=== PATIENT | female | born 1940 | race Caucasian/White ===

== ENCOUNTER 2017-09-24 11:08 | Observation (INO) | payer MEDICARE, MEDICAID, SELFPAY ==
[2017-09-24] VITALS (8 sets, daily range): BP systolic 88–122; BP diastolic 38–64; PULSE 66–108; RESP 18–20; TEMP 36.7–36.9; O2SAT 91–97; BMI 21.0
--- NOTE | 2017-09-24 11:40 | XR_ITS ---
XR chest 2V HISTORY: ITS.REASON: cough, shortness of breath ORDERING PHYSICIAN: Aleksey Collins MD PATIENT AGE: 76 years COMPARISON: [id number] FINDINGS: The cardiomediastinal silhouette and pulmonary vascularity are within normal limits. There are postsurgical changes on the right with surgical clips in the right upper lobe and right suprahilar region. Pleural parenchymal changes are present in the right lung base. There is some superimposed increased density in the right lower lobe suspicious for superimposed infiltrate. Chronic changes are present in the left lower lobe. No acute bony anomalies. IMPRESSION: Postsurgical and chronic changes with suspected superimposed pneumonia in the right lower lobe.
[2017-09-24 12:36] LABS: Adenovirus,PCR Not Detected (NotDetected); Bordetella Pertussis Not Detected (NotDetected); Chlamydophila Pneumoniae, PCR Not Detected (NotDetected); Coronavirus 229E Not Detected (NotDetected); Coronavirus NL63 Not Detected (NotDetected); Coronavirus OC43 Not Detected (NotDetected); Coronovirus HKU1,PCR Not Detected (NotDetected); Human Metapneumovirus Not Detected (NotDetected); Influenza A, PCR Not Detected (NotDetected); Influenza AH1, 2009 Not Detected (NotDetected); Influenza AH1, PCR Not Detected (NotDetected); Influenza AH3,PCR Not Detected (NotDetected); Influenza B, PCR Not Detected (NotDetected); Mycoplasma Pneumoniae, PCR Not Detected (NotDected); Parainfluenza 1, PCR Not Detected (NotDetected); Parainfluenza 2, PCR Not Detected (NotDetected); Parainfluenza 3, PCR Not Detected (NotDetected); Parainfluenza 4, PCR Not Detected (NotDetected); Respiratory Syncytial Virus Not Detected (NotDetected); Rhinovirus/Enterovirus Not Detected (NotDetected)
[2017-09-24 12:37] LABS: Basophils % 0.2 % (0.1-2.0); Eosinophils # 0.1 K/mm3 (0.0-0.4); Eosinophils % 0.2 % (0.1-12.0); Hematocrit 27.8 % (37.0-47.0); Hemoglobin 8.9 g/dL (12.2-16.2); Lymphocytes # 2.3 K/mm3 (0.7-4.5); Lymphocytes % 9.8 K/mm3 (10-50); Mean Corpuscular HGB Conc 32.1 g/dL (31.8-35.4); Mean Corpuscular Hemoglobin 27.6 pg (27.0-31.2); Mean Corpuscular Volume 86.2 fl (81-99); Mean Platelet Volume 7.4 fl (7.4-10.4); Monocytes # 0.5 K/mm3 (0.1-1.0); Monocytes % 2.3 % (1.7-9.3); Neutrophils # 20.5 K/mm3 (1.8-7.8); Neutrophils % 87.5 % (37.0-80.0); Platelet Count 427 K/mm3 (142-424); Red Blood Count 3.23 M/mm3 (4.20-5.40); Red Cell Distribution Width 14.4 % (11.5-17.5); White Blood Count 23.4 K/mm3 (4.8-10.8)
[2017-09-24 12:40] LABS: MANUAL DIFFERENTIAL MANUAL DIFFERENTIAL (MANUAL DIFF)
--- NOTE | 2017-09-24 13:09 | HMH.HP ---
*Admission Date: 09/24/17 *Chief complaint: shortness of breath, cough and dizziness *History of present illness: 76 year old white female with significant h/o COPD, lung cancer and A. Fib presented to PCP office with increased shortness of breath, cough, and dizziness. She reports symptoms started 3 days ago. Further reports clear rhinorrhea, bloody sputum and diarrhea. In the office, she was found to be hypotension with dry mucous membranes. Son states she has been staggering around the house all morning. Patient was admitted to observation for IV hydration and further evaluation.. [facility] History Medical History: Reports:: Atrial Fibrillation, Cancer, Hyperlipidemia, Hypertension Denies:: Diabetes Mellitus Type 1, Diabetes Mellitus Type 2, MRSA Other Medical History: Reports: Cataracts Other Surgeries: Yes: Cancer Surgery, Colonoscopy, Colon Resection, Dilation and Curettage, EGD, Thyroidectomy Amputation: No Fractures: No - *Social History Educational Level: Attended High School Smoking Status: Former smoker Tobacco Type: cigarettes Alcohol Intake: never Occupational Status: retired Housing: apartment - Psychiatric History Expresses thoughts of harming self/others: None Suicide Plan Description: No Plan *Family Hx:: Anemia, Cancer, Hypertension Review of Systems - Review of Systems Review of systems:: unable to obtain, other, pertinent systems reviewed and negative unless documented below - Constitutional Reports fatigue, Reports malaise, Reports weakness - ENT Reports nasal discharge - *Respiratory Reports chest congestion, Reports cough, Reports shortness of breath, Reports excessive phlegm production - *Gastrointestinal Reports loose stools - *Neurologic Reports dizziness Meds Home Medications Medication Instructions Recorded Confirmed Type Azithromycin [Zithromax 250mg 250 mg PO DIRECTED 09/24/17 09/24/17 History tab] Carvedilol [Carvedilol 6.25mg Tab] 6.25 mg PO DAILY 09/24/17 09/24/17 History Esomeprazole Magnesium 40 mg PO DAILY 09/24/17 09/24/17 History Gabapentin [Gabapentin 300mg Cap] 300 mg PO DAILY 09/24/17 09/24/17 History Levothyroxine Sodium 75 mcg PO DAILY 09/24/17 09/24/17 History [Levothyroxine 75mcg (0.075mg) Tab] Losartan/Hydrochlorothiazide 1 each PO DAILY 09/24/17 09/24/17 History [Losartan-Hctz 100-25 mg Tab] Pilocarpine HCl 5 mg PO TID 09/24/17 09/24/17 History Rosuvastatin Calcium [Crestor] 10 mg PO DAILY 09/24/17 09/24/17 History Allergies Allergy/AdvReac Type Severity Reaction Status Date / Time aspirin [ASPIRIN] Allergy Unknown BLEEDING Verified 09/24/17 12:22 Penicillins Allergy Unknown FACIAL Verified 09/24/17 12:22 NUMBNESS Exam Vital signs and Labs for Last 24 Hours: Temp Pulse Resp BP Pulse Ox 98.2 F 101 H 20 110/56 91 L 09/24/17 11:40 09/24/17 11:40 09/24/17 11:40 09/24/17 12:30 09/24/17 11:40 Laboratory Results - last 24 hr 09/24/17 12:20: WBC 23.4 H*, RBC 3.23 L, Hgb 8.9 L, Hct 27.8 L, MCV 86.2, MCH 27.6, MCHC 32.1, RDW 14.4, Plt Count 427 H, MPV 7.4, Neut % (Auto) 87.5 H, Lymph % (Auto) 9.8 L, Dixie % (Auto) 2.3, Eos % (Auto) 0.2, Baso % (Auto) 0.2, Neut # (Auto) 20.5 H, Lymph # (Auto) 2.3, Dixie # (Auto) 0.5, Eos # (Auto) 0.1, Baso # (Auto) 0.0 Narrative: Frail, elderly female, appears weak, NAD. Mucous membranes dry, nose with clear rhinorrhea. Skin, pale, warm. Lung sounds with scattered rhonchi on right, limited left base. Rate and rhythm regular. Pulses 2+ bilaterally. No LE edema. Alert and oriented x3. No neurological deficits. Abdomen soft, and nontender with normoactive bowel sounds. H&P: Result - Labs Labs: Short CBC 09/24/17 Range/Units 12:20 WBC 23.4 H* (4.8-10.8) K/mm3 Hgb 8.9 L (12.2-16.2) g/dL Hct 27.8 L (37.0-47.0) % Plt Count 427 H (142-424) K/mm3 Assessment and Plan (1) COPD exacerbation Current visit: Yes Status: Acute Category: Medical
--- NOTE | 2017-09-24 13:14 | P.HP_ITS ---
*Admission Date: 09/24/17 *Chief complaint: shortness of breath, cough and dizziness *History of present illness: 76 year old white female with significant h/o COPD, lung cancer and A. Fib presented to PCP office with increased shortness of breath, cough, and dizziness. She reports symptoms started 3 days ago. Further reports clear rhinorrhea, bloody sputum and diarrhea. In the office, she was found to be hypotension with dry mucous membranes. Son states she has been staggering around the house all morning. Patient was admitted to observation for IV hydration and further evaluation.. [facility] History Medical History: Reports:: Atrial Fibrillation, Cancer, Hyperlipidemia, Hypertension Denies:: Diabetes Mellitus Type 1, Diabetes Mellitus Type 2, MRSA Other Medical History: Reports: Cataracts Other Surgeries: Yes: Cancer Surgery, Colonoscopy, Colon Resection, Dilation and Curettage, EGD, Thyroidectomy Amputation: No Fractures: No - *Social History Educational Level: Attended High School Smoking Status: Former smoker Tobacco Type: cigarettes Alcohol Intake: never Occupational Status: retired Housing: apartment - Psychiatric History Expresses thoughts of harming self/others: None Suicide Plan Description: No Plan *Family Hx:: Anemia, Cancer, Hypertension Review of Systems - Review of Systems Review of systems:: unable to obtain, other, pertinent systems reviewed and negative unless documented below - Constitutional Reports fatigue, Reports malaise, Reports weakness - ENT Reports nasal discharge - *Respiratory Reports chest congestion, Reports cough, Reports shortness of breath, Reports excessive phlegm production - *Gastrointestinal Reports loose stools - *Neurologic Reports dizziness Meds Home Medications Medication Instructions Recorded Confirmed Type Azithromycin [Zithromax 250mg 250 mg PO DIRECTED 09/24/17 09/24/17 History tab] Carvedilol [Carvedilol 6.25mg Tab] 6.25 mg PO DAILY 09/24/17 09/24/17 History Esomeprazole Magnesium 40 mg PO DAILY 09/24/17 09/24/17 History Gabapentin [Gabapentin 300mg Cap] 300 mg PO DAILY 09/24/17 09/24/17 History Levothyroxine Sodium 75 mcg PO DAILY 09/24/17 09/24/17 History [Levothyroxine 75mcg (0.075mg) Tab] Losartan/Hydrochlorothiazide 1 each PO DAILY 09/24/17 09/24/17 History [Losartan-Hctz 100-25 mg Tab] Pilocarpine HCl 5 mg PO TID 09/24/17 09/24/17 History Rosuvastatin Calcium [Crestor] 10 mg PO DAILY 09/24/17 09/24/17 History Allergies Allergy/AdvReac Type Severity Reaction Status Date / Time aspirin [ASPIRIN] Allergy Unknown BLEEDING Verified 09/24/17 12:22 Penicillins Allergy Unknown FACIAL Verified 09/24/17 12:22 NUMBNESS Exam Vital signs and Labs for Last 24 Hours: Temp Pulse Resp BP Pulse Ox 98.2 F 101 H 20 110/56 91 L 09/24/17 11:40 09/24/17 11:40 09/24/17 11:40 09/24/17 12:30 09/24/17 11:40 Laboratory Results - last 24 hr 09/24/17 12:20: WBC 23.4 H*, RBC 3.23 L, Hgb 8.9 L, Hct 27.8 L, MCV 86.2, MCH 27.6, MCHC 32.1, RDW 14.4, Plt Count 427 H, MPV 7.4, Neut % (Auto) 87.5 H, Lymph % (Auto) 9.8 L, Heard % (Auto) 2.3, Eos % (Auto) 0.2, Baso % (Auto) 0.2, Neut # (Auto) 20.5 H, Lymph # (Auto) 2.3, Heard # (Auto) 0.5, Eos # (Auto) 0.1, Baso # (Auto) 0.0 Narrative: Frail, elderly female, appears weak, NAD. Mucous membranes dry, nose with clear rhinorrhea.
[2017-09-24 14:11] LABS: Lymphocytes % 14 % (10-50); Monocytes % 4 % (2-9); Neutrophils % 82 % (42-76); Total Cells Counted 100
[2017-09-24 14:12] LABS: Platelet Estimate Slight Increase; RBC Morphology Normal
[2017-09-24 14:26] LABS: Alanine Aminotransferase 21 U/L (12-78); Albumin Level 3.2 gm/dL (3.4-5.0); Albumin/Globulin Ratio 0.7 (1.1-1.8); Alkaline Phosphatase 108 U/L (46-116); Anion Gap 17.7 mEq/L (5-15); Aspartate Amino Transferase 14 U/L (15-37); Bilirubin,Total 0.3 mg/dL (0.2-1.0); Blood Urea Nitrogen 29 mg/dL (7-18); Calcium 9.2 mg/dL (8.5-10.1); Carbon Dioxide 27 mmol/L (21.0-32.0); Chloride 104 mmol/L (98-107); Creatinine Clearance Estimated 23 mL/min (0-300); Creatinine,Serum 1.68 mg/dL (0.55-1.02); Estimated Glomerular Filt Rate 29 ml/min (>60); GFR (African American) 36 ML/MIN (>60); Globulin 4.9 gm/dl (1.3-3.2); Glucose 135 mg/dL (74-106); Potassium 3.7 mmoL/L (3.5-5.1); Sodium 145 mmol/L (136-145); Total Protein,Serum 8.1 gm/dL (6.4-8.2)
--- NOTE | 2017-09-24 14:50 | HMH.ACPN ---
Internal Medicine - PN: Subj *Date: 09/24/17 *Time: 14:50 Exam Vital signs and Labs for Last 24 Hours: Temp Pulse Resp BP Pulse Ox 98.2 F 101 H 20 110/56 91 L 09/24/17 11:40 09/24/17 11:40 09/24/17 11:40 09/24/17 12:30 09/24/17 11:40 Laboratory Results - last 24 hr 09/24/17 12:20: WBC 23.4 H*, RBC 3.23 L, Hgb 8.9 L, Hct 27.8 L, MCV 86.2, MCH 27.6, MCHC 32.1, RDW 14.4, Plt Count 427 H, MPV 7.4, Neut % (Auto) 87.5 H, Lymph % (Auto) 9.8 L, [place]rack[place] % (Auto) 2.3, Eos % (Auto) 0.2, Baso % (Auto) 0.2, Neut # (Auto) 20.5 H, Lymph # (Auto) 2.3, [place]rack[place] # (Auto) 0.5, Eos # (Auto) 0.1, Baso # (Auto) 0.0, Total Counted 100, Neutrophils % (Manual) 82 H, Lymphocytes % (Manual) 14, Monocytes % (Manual) 4, Platelet Estimate Slight increase, RBC Morphology Normal 09/24/17 12:20: Sodium 145, Potassium 3.7, Chloride 104, Carbon Dioxide 27, Anion Gap 17.7 H, BUN 29 H, Creatinine 1.68 H, Estimated Creat Clear 23, Estimated GFR 29 L, Est GFR ( Amer) 36 L, Glucose 135 H, Calcium 9.2, Total Bilirubin 0.3, AST 14 L, ALT 21, Alkaline Phosphatase 108, Total Protein 8.1, Albumin 3.2 L, Globulin 4.9 H, Albumin/Globulin Ratio 0.7 L 09/24/17 12:20: Chlamy pneumoniae PCR Not detected, Adenovirus (PCR) Not detected, B.parapertussis DNA PCR Not detected, Coronavirus OC43 (PCR) Not detected, Coronavirus HKU1 (PCR) Not detected, Coronavirus 229E (PCR) Not detected, Coronavirus NL63 (PCR) Not detected, Human Metapneumovir PCR Not detected, Influenza A (H1) PCR Not detected, Influ A (H1N1/09) PCR Not detected, Influenza A (H3) PCR Not detected, Influenza Type A (PCR) Not detected, Influenza Type B (PCR) Not detected, M. pneumoniae (PCR) Not detected, Parainfluenza 1 (PCR) Not detected, Parainfluenza 2 (PCR) Not detected, Parainfluenza 3 (PCR) Not detected, Parainfluenza 4 (PCR) Not detected, RSV (PCR) Not detected, Entero/Rhino (PCR) Not detected
--- NOTE | 2017-09-24 14:53 | P.PN_ITS ---
Internal Medicine - PN: Subj *Date: 09/24/17 *Time: 14:50 Exam Vital signs and Labs for Last 24 Hours: Temp Pulse Resp BP Pulse Ox 98.2 F 101 H 20 110/56 91 L 09/24/17 11:40 09/24/17 11:40 09/24/17 11:40 09/24/17 12:30 09/24/17 11:40 Laboratory Results - last 24 hr 09/24/17 12:20: WBC 23.4 H*, RBC 3.23 L, Hgb 8.9 L, Hct 27.8 L, MCV 86.2, MCH 27.6, MCHC 32.1, RDW 14.4, Plt Count 427 H, MPV 7.4, Neut % (Auto) 87.5 H, Lymph % (Auto) 9.8 L, Gos[place] % (Auto) 2.3, Eos % (Auto) 0.2, Baso % (Auto) 0.2, Neut # (Auto) 20.5 H, Lymph # (Auto) 2.3, Gos[place] # (Auto) 0.5, Eos # (Auto) 0.1, Baso # (Auto) 0.0, Total Counted 100, Neutrophils % (Manual) 82 H, Lymphocytes % (Manual) 14, Monocytes % (Manual) 4, Platelet Estimate Slight increase, RBC Morphology Normal 09/24/17 12:20: Sodium 145, Potassium 3.7, Chloride 104, Carbon Dioxide 27, Anion Gap 17.7 H, BUN 29 H, Creatinine 1.68 H, Estimated Creat Clear 23, Estimated GFR 29 L, Est GFR ( Amer) 36 L, Glucose 135 H, Calcium 9.2, Total Bilirubin 0.3, AST 14 L, ALT 21, Alkaline Phosphatase 108, Total Protein 8.1, Albumin 3.2 L, Globulin 4.9 H, Albumin/Globulin Ratio 0.7 L 09/24/17 12:20: Chlamy pneumoniae PCR Not detected, Adenovirus (PCR) Not detected, B.parapertussis DNA PCR Not detected, Coronavirus OC43 (PCR) Not detected, Coronavirus HKU1 (PCR) Not detected, Coronavirus 229E (PCR) Not detected, Coronavirus NL63 (PCR) Not detected, Human Metapneumovir PCR Not detected, Influenza A (H1) PCR Not detected, Influ A (H1N1/09) PCR Not detected , Influenza A (H3) PCR Not detected, Influenza Type A (PCR) Not detected, Influenza Type B (PCR) Not detected, M. pneumoniae (PCR) Not detected, Parainfluenza 1 (PCR) Not detected, Parainfluenza 2 (PCR) Not detected, Parainfluenza 3 (PCR) Not detected, Parainfluenza 4 (PCR) Not detected, RSV (PCR ) Not detected, Entero/Rhino (PCR) Not detected
[2017-09-25] VITALS (10 sets, daily range): BP systolic 126–157; BP diastolic 42–72; PULSE 72–121; RESP 18–22; TEMP 36.6–36.9; O2SAT 94–98; BMI 21.2
--- NOTE | 2017-09-25 03:43 | PC.NURSE ---
NO ACUTE CHANGES NOTED. PT CONTINUES TO HAVE EXPIRATORY RHONCHI T/O. PT REMAINS ON 2L O2 NC. SPUTUM OBTAINED. WAITING FOR RESULTS. VSS. ORTHOSTATIC B/P ALSO OBTAINED. PT HAS BEEN TACHY AT TIMES. PT STATES THAT SHE TAKES MEDICATION FOR IT. IV FLUIDS INFUSING. NO OTHER COCNERNS AT THIS TIME. WILL CONTINUE TO MONITOR.
--- NOTE | 2017-09-25 07:31 | HMH.ACPN ---
Internal Medicine - PN: Sumit *Date: 09/25/17 *Time: 07:31 Interval history: Overall patient continues to have some cough and body aches. No fever. Continues to have some cough with sputum. Exam Vital signs and Labs for Last 24 Hours: Temp Pulse Resp BP Pulse Ox 98.3 F 119 H 20 126/71 94 L 09/25/17 04:00 09/25/17 05:39 09/25/17 04:00 09/25/17 04:00 09/25/17 05:39 Laboratory Results - last 24 hr 09/24/17 12:20: WBC 23.4 H*, RBC 3.23 L, Hgb 8.9 L, Hct 27.8 L, MCV 86.2, MCH 27.6, MCHC 32.1, RDW 14.4, Plt Count 427 H, MPV 7.4, Neut % (Auto) 87.5 H, Lymph % (Auto) 9.8 L, Evangeline % (Auto) 2.3, Eos % (Auto) 0.2, Baso % (Auto) 0.2, Neut # (Auto) 20.5 H, Lymph # (Auto) 2.3, Evangeline # (Auto) 0.5, Eos # (Auto) 0.1, Baso # (Auto) 0.0, Total Counted 100, Neutrophils % (Manual) 82 H, Lymphocytes % (Manual) 14, Monocytes % (Manual) 4, Platelet Estimate Slight increase, RBC Morphology Normal 09/24/17 12:20: Sodium 145, Potassium 3.7, Chloride 104, Carbon Dioxide 27, Anion Gap 17.7 H, BUN 29 H, Creatinine 1.68 H, Estimated Creat Clear 23, Estimated GFR 29 L, Est GFR ( Amer) 36 L, Glucose 135 H, Calcium 9.2, Total Bilirubin 0.3, AST 14 L, ALT 21, Alkaline Phosphatase 108, Total Protein 8.1, Albumin 3.2 L, Globulin 4.9 H, Albumin/Globulin Ratio 0.7 L 09/24/17 12:20: Chlamy pneumoniae PCR Not detected, Adenovirus (PCR) Not detected, B.parapertussis DNA PCR Not detected, Coronavirus OC43 (PCR) Not detected, Coronavirus HKU1 (PCR) Not detected, Coronavirus 229E (PCR) Not detected, Coronavirus NL63 (PCR) Not detected, Human Metapneumovir PCR Not detected, Influenza A (H1) PCR Not detected, Influ A (H1N1/09) PCR Not detected, Influenza A (H3) PCR Not detected, Influenza Type A (PCR) Not detected, Influenza Type B (PCR) Not detected, M. pneumoniae (PCR) Not detected, Parainfluenza 1 (PCR) Not detected, Parainfluenza 2 (PCR) Not detected, Parainfluenza 3 (PCR) Not detected, Parainfluenza 4 (PCR) Not detected, RSV (PCR) Not detected, Entero/Rhino (PCR) Not detected I & O for Last 24 hours: Intake & Output 09/22/17 09/23/17 09/24/17 09/25/17 11:59 11:59 11:59 11:59 Intake Total 480 / 480 Balance 480 / 480 Narrative: Patient is alert, oriented, pleasant. Lungs have good air movement, rhonchi in the left lower lung field, some rhonchi in the right. Heart rate regular. Abdomen soft, no edema. Assessment and Plan (1) COPD exacerbation Current visit: Yes Status: Acute Category: Medical Code(s): J44.1 - Chronic obstructive pulmonary disease with (acute) exacerbation (2) Dehydration Current visit: Yes Status: Acute Category: Medical Code(s): E86.0 - Dehydration (3) Orthostatic hypotension Current visit: Yes Status: Acute Category: Medical Code(s): I95.1 - Orthostatic hypotension - Assessment and plan all Dx Assessment and Plan for all problems:: Patient is improving. Labs ordered for today to assess leukocytosis. Await culture results. Continue current antibiotic therapy.
--- NOTE | 2017-09-25 07:41 | P.CONPHA_ITS ---
[facility] Pharmacy VTE Monitoring - Patient Demographics Admission date: 09/24/17 Report Date: 09/25/17 Time: 07:41 Allergies/Adverse Reactions: aspirin [ASPIRIN] Allergy (Unknown, Verified 09/24/17 12:22) BLEEDING Penicillins Allergy (Unknown, Verified 09/24/17 12:22) FACIAL NUMBNESS Height: 1.57 m Weight: 52.305 kg Patient Problems: Current Active Problems COPD exacerbation (Acute) Dehydration (Acute) Orthostatic hypotension (Acute) - VTE Risk Labs: VTE Related Lab Results Hgb 8.9 g/dL (12.2-16.2) L 09/24/17 12:20 Hct 27.8 % (37.0-47.0) L 09/24/17 12:20 Plt Count 427 K/mm3 (142-424) H 09/24/17 12:20 BUN 29 mg/dL (7-18) H 09/24/17 12:20 Creatinine 1.68 mg/dL (0.55-1.02) H 09/24/17 12:20 Estimated Creat Clear 23 mL/min (0-300) 09/24/17 12:20 VTE Score: 3 VTE Risk Level: Low Risk Clinical Trial Participant: No - Prophylaxis VTE Prophylaxis Ordered?: Yes Types of VTE Prophylaxis: TEDS Knee High
--- NOTE | 2017-09-25 07:51 | PC.NURSE ---
PT REPORT HANDOFF TO ADIN JARQUIN
[2017-09-25 07:56] LABS: Basophils % 0.2 % (0.1-2.0); Eosinophils # 0.1 K/mm3 (0.0-0.4); Eosinophils % 0.7 % (0.1-12.0); Hematocrit 27.7 % (37.0-47.0); Hemoglobin 8.6 g/dL (12.2-16.2); Lymphocytes % 14.4 K/mm3 (10-50); Mean Corpuscular HGB Conc 31.2 g/dL (31.8-35.4); Mean Corpuscular Volume 86.5 fl (81-99); Mean Platelet Volume 7.6 fl (7.4-10.4); Monocytes # 0.4 K/mm3 (0.1-1.0); Monocytes % 3.1 % (1.7-9.3); Neutrophils # 11.1 K/mm3 (1.8-7.8); Neutrophils % 81.5 % (37.0-80.0); Platelet Count 418 K/mm3 (142-424); Red Cell Distribution Width 14.3 % (11.5-17.5); White Blood Count 13.6 K/mm3 (4.8-10.8)
[2017-09-25 08:28] LABS: Alanine Aminotransferase 26 U/L (12-78); Albumin Level 2.9 gm/dL (3.4-5.0); Albumin/Globulin Ratio 0.7 (1.1-1.8); Alkaline Phosphatase 101 U/L (46-116); Anion Gap 14.7 mEq/L (5-15); Aspartate Amino Transferase 25 U/L (15-37); Bilirubin,Total 0.2 mg/dL (0.2-1.0); Blood Urea Nitrogen 18 mg/dL (7-18); Calcium 8.8 mg/dL (8.5-10.1); Carbon Dioxide 27 mmol/L (21.0-32.0); Chloride 106 mmol/L (98-107); Creatinine Clearance Estimated 33 mL/min (0-300); Creatinine,Serum 1.17 mg/dL (0.55-1.02); Estimated Glomerular Filt Rate 45 ml/min (>60); GFR (African American) 54 ML/MIN (>60); Globulin 4.3 gm/dl (1.3-3.2); Glucose 116 mg/dL (74-106); Potassium 3.7 mmoL/L (3.5-5.1); Sodium 144 mmol/L (136-145); Total Protein,Serum 7.2 gm/dL (6.4-8.2)
--- NOTE | 2017-09-25 14:25 | PC.NURSE ---
Care management rounds: Discussed possible dc for tomorrow.
--- NOTE | 2017-09-25 15:09 | PC.NURSE ---
A&O x3. Lungs clear but diminished. Pt remains on 2l nasal cannula w/o2 sats in the 90's. She has ambulated around her room using a straight cane on standby assist with no difficulty. She was up to the chair in the afternoon then returned to bed. She is currently resting with eyes closed. Tylenol administered in the am for report of headache. She reported relief upon reassessment. Will continue to monitor.
--- NOTE | 2017-09-25 19:15 | PC.NURSE ---
REPORT RECEIVED FROM STORMY; PT FULL CODE
[2017-09-26 04:00] VITALS: BP 151/90; PULSE 72; RESP 17; TEMP 36.7; O2SAT 96
--- NOTE | 2017-09-26 05:33 | PC.NURSE ---
PT SLEPT LONG INTERVALS. IV SECURE AND PATENT, RECEIVING IV FLUIDS AND IV ABX. PT HAS NON-PRODUCTIVE OCCASIONAL COUGH. BREATH SOUNDS CLEAR AT THIS TIME. NO C/O PAIN OR DISCOMFORT REPORTED. PT STATES WANTS TO GO HOME TODAY. WORRIED ABOUT UPCOMING BAD WEATHER. PT STABLE. WILL CONTINUE TO MONITOR. REPORT TO BE GIVEN TO ONCOMING NURSE.
[2017-09-26 06:40] VITALS: PULSE 110; O2SAT 93
[2017-09-26 07:22] LABS: Basophils % 0.2 % (0.1-2.0); Eosinophils # 0.1 K/mm3 (0.0-0.4); Eosinophils % 1.2 % (0.1-12.0); Hematocrit 26.6 % (37.0-47.0); Hemoglobin 8.3 g/dL (12.2-16.2); Lymphocytes # 1.8 K/mm3 (0.7-4.5); Lymphocytes % 16.8 K/mm3 (10-50); Mean Corpuscular HGB Conc 31.4 g/dL (31.8-35.4); Mean Corpuscular Hemoglobin 27.2 pg (27.0-31.2); Mean Corpuscular Volume 86.6 fl (81-99); Monocytes # 0.4 K/mm3 (0.1-1.0); Monocytes % 3.5 % (1.7-9.3); Neutrophils # 8.5 K/mm3 (1.8-7.8); Neutrophils % 78.2 % (37.0-80.0); Platelet Count 413 K/mm3 (142-424); Red Blood Count 3.07 M/mm3 (4.20-5.40); Red Cell Distribution Width 14.2 % (11.5-17.5); White Blood Count 10.9 K/mm3 (4.8-10.8)
[2017-09-26 07:41] LABS: Alanine Aminotransferase 55 U/L (12-78); Albumin Level 2.7 gm/dL (3.4-5.0); Albumin/Globulin Ratio 0.6 (1.1-1.8); Alkaline Phosphatase 96 U/L (46-116); Anion Gap 14.5 mEq/L (5-15); Aspartate Amino Transferase 46 U/L (15-37); Bilirubin,Total 0.2 mg/dL (0.2-1.0); Blood Urea Nitrogen 9 mg/dL (7-18); Calcium 8.3 mg/dL (8.5-10.1); Carbon Dioxide 25 mmol/L (21.0-32.0); Chloride 107 mmol/L (98-107); Creatinine Clearance Estimated 38 mL/min (0-300); Creatinine,Serum 0.92 mg/dL (0.55-1.02); Estimated Glomerular Filt Rate 59 ml/min (>60); GFR (African American) 71 ML/MIN (>60); Globulin 4.2 gm/dl (1.3-3.2); Glucose 109 mg/dL (74-106); Potassium 3.5 mmoL/L (3.5-5.1); Sodium 143 mmol/L (136-145); Total Protein,Serum 6.9 gm/dL (6.4-8.2)
--- NOTE | 2017-09-26 07:49 | HMH.DCSUM ---
General - General Admission date: 09/24/17 Discharge date: 09/26/17 HPI HPI: 76 year old white female with significant h/o COPD, lung cancer and A. Fib presented to PCP office with increased shortness of breath, cough, and dizziness. She reports symptoms started 3 days ago. Further reports clear rhinorrhea, bloody sputum and diarrhea. In the office, she was found to be hypotension with dry mucous membranes. Son states she has been staggering around the house all morning. Patient was admitted to observation for IV hydration and further evaluation.. Objective Vital signs: Temp Pulse Resp BP Pulse Ox 98.1 F 110 H 17 151/90 93 L 09/26/17 04:00 09/26/17 06:40 09/26/17 04:00 09/26/17 04:00 09/26/17 06:40 Narrative: Alert and oriented x3. Rate and rhythm regular. Pulses 2+ bilaterally. No LE edema. Lung sounds with scattered rhonchi on right, faint wheezes throughout, airflow improved. Abdomen soft, and nontender. Hospital Course Hospital Course: Patient was admitted for IV antibiotics and hydration. CXR was obtained which showed a right upper lobe infiltrate. She was noted to have significant leukocytosis with WBC 23.4. She was started on rocephin and zithromax with significant improvement in leukocytosis. WBC this morning was 10.4. Blood and sputum cultures were obtained and are still pending. She is tolerating oral intake well and able to ambulate to the bathroom without dizziness. Discharge home on zithromax and cefdinir. See medication reconciliation for complete list. FU with myself in the office on Saturday. Results Labs on day of discharge: Labs from last 24 hours 09/26/17 09/25/17 09/25/17 06:20 07:37 07:37 WBC 10.9 H 13.6 H D RBC 3.07 L 3.20 L Hgb 8.3 L 8.6 L Hct 26.6 L 27.7 L MCV 86.6 86.5 MCH 27.2 27.0 MCHC 31.4 L 31.2 L RDW 14.2 14.3 Plt Count 413 418 MPV 7.0 L 7.6 Neut % (Auto) 78.2 81.5 H Lymph % (Auto) 16.8 14.4 Amador % (Auto) 3.5 3.1 Eos % (Auto) 1.2 0.7 Baso % (Auto) 0.2 0.2 Neut # (Auto) 8.5 H 11.1 H Lymph # (Auto) 1.8 2.0 [place] # (Auto) 0.4 0.4 Eos # (Auto) 0.1 0.1 Baso # (Auto) 0.0 0.0 Sodium 144 Potassium 3.7 Chloride 106 Carbon Dioxide 27 Anion Gap 14.7 BUN 18 D Creatinine 1.17 H D Estimated Creat Clear 33 Estimated GFR 45 L Est GFR ( Amer) 54 L D Glucose 116 H Calcium 8.8 Total Bilirubin 0.2 AST 25 D ALT 26 Alkaline Phosphatase 101 Total Protein 7.2 Albumin 2.9 L Globulin 4.3 H Albumin/Globulin Ratio 0.7 L DS: Diagnosis - Discharge Diagnosis (1) COPD exacerbation Status: Acute (2) Dehydration Status: Resolved (3) Orthostatic hypotension Status: Resolved Meds Home Medications Medication Instructions Recorded Confirmed Type Azithromycin [Zithromax 250mg 250 mg PO DIRECTED 09/24/17 09/24/17 History tab] Carvedilol [Carvedilol 6.25mg Tab] 6.25 mg PO DAILY 09/24/17 09/24/17 History Esomeprazole Magnesium 40 mg PO DAILY 09/24/17 09/24/17 History Gabapentin [Gabapentin 300mg Cap] 600 mg PO HS 09/24/17 09/25/17 History Levothyroxine Sodium 75 mcg PO DAILY 09/24/17 09/24/17 History [Levothyroxine 75mcg (0.075mg) Tab] Losartan/Hydrochlorothiazide 1 each PO DAILY 09/24/17 09/24/17 History [Losartan-Hctz 100-25 mg Tab] Pilocarpine HCl 5 mg PO TID 09/24/17 09/24/17 History Rosuvastatin Calcium [Crestor] 10 mg PO DAILY 09/24/17 09/24/17 History Fluticasone/Salmeterol 1 puff INHALATION BID 09/25/17 09/25/17 History [Fluticasone/Salmeterol 250/50mcg diskus] Allergies Allergy/AdvReac Type Severity Reaction Status Date / Time aspirin [ASPIRIN] Allergy Unknown BLEEDING Verified 09/24/17 12:22 Penicillins Allergy Unknown FACIAL Verified 09/24/17 12:22 NUMBNESS Discharge Plan - Patient Discharge Instructions Activity: Ambulate as Tolerated Diet:
[2017-09-26 08:00] VITALS: BP 166/83; PULSE 85; RESP 20; TEMP 36.9; O2SAT 96
--- NOTE | 2017-09-26 09:09 | PC.NURSE ---
BLOOD CULTURES WERE ORDERED ON 09/24/17 @1150. LAB AT BEDSIDE TO DRAW THEM NOW. PATIENT WANTS TO KNOW WHY THEY ARE BEING DRAWN NOW. I INFORMED THE LAB PERSONNEL PATIENT HAS NOW BEEN ON IV ANTIBIOTICS FOR 2 DAYS AND IS BEING DISCHARGED TODAY.
[2017-09-26 11:26] VITALS: PULSE 110
== END 2017-09-26 13:37 | disposition home or self-care (01) ==
PROVIDERS: Nurse Practitioner Family; Admitting Provider Internal Medicine Adolescent Medicine; PCP Internal Medicine Adolescent Medicine; Visit Provider Internal Medicine Adolescent Medicine
DX: J44.1 Chronic obstructive pulmonary disease with (acute) exacerbation (principal); E86.0 Dehydration; I95.1 Orthostatic hypotension; J44.0 Chronic obstructive pulmonary disease with (acute) lower respiratory infection; J18.9 Pneumonia, unspecified organism; I10 Essential (primary) hypertension; I48.91 Unspecified atrial fibrillation; C34.90 Malignant neoplasm of unspecified part of unspecified bronchus or lung
CPT/HCPCS: 36415; 71046; 80053; 85007; 85025; 87040; 87070; 87077; 87186; 87205; 87486; 87581; 87633; 87798; 94640; G0378; J0456

== ENCOUNTER → 2017-10-21 08:00 | Outpatient (CLI) | payer MEDICARE, MEDICAID, SELFPAY ==
[2017-10-21 08:24] LABS: Blood Urea Nitrogen 16 mg/dL (7-18); Creatinine,Serum 0.94 mg/dL (0.55-1.02); Estimated Glomerular Filt Rate 58 ml/min (>60); GFR (African American) 70 ML/MIN (>60)
--- NOTE | 2017-10-21 08:30 | CT_ITS ---
CT chest w con Ordering Physician: Janes Omer Patient Age: 76 years: Female HISTORY: Colon cancer. COPD. Left breast cancer. Lung surgery. TECHNIQUE: Helical CT scanning performed through the chest with 75 cc [id number]. Sagittal coronal reconstructions on CT workstation COMPARISON :Previous CT chest 517. FINDINGS Mediastinum No mediastinal or hilar mass or adenopathy is evident.. Moderate sizedhiatal hernia. Heart size is normal. Pulmonary arteries are mildly prominent as previously noted right measuring over 2.6 cm & left 2.7 cm. Lungs: There are centrilobular emphysematous changes with scattered areas of fibrosis. Scarring most evident at the periphery of the right. Subtle infiltrate periphery left upper lobe No effusions Atelectatic or fibrotic changes noted in the lung bases. Right lung Postsurgical changes are present right hilum and right lung apex-associated vascular clips and linear scarring in these region.. Stable Minimal 5 mm density axial 16 just posterior to area linear scarring appears to be of element of the above as supported by the sagittal image. It is unchanged since prior study. Elevation right hemidiaphragm similar to previous studies. Left lung. Focal area of minimal interstitial infiltrate the periphery of L UL towards the left midlung. (Axial slice 26-35, coronal 41-35). This is a new feature since prior study. PET may reflect a subtle interstitial pneumonia. However if the patient may have had recent radiation to the left breast or axillary region this could conceivably reflect post radiation changes. I. 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 Slightly mottled appearance of the first and second ribs on axial images but WNL.. No definitive evidence of evidence of osseous metastatic disease. Left mastectomy is noted. No associated findings. No axillary or clavicular nor mediastinal adenopathy 14 mm left adrenal nodule again noted as discussed on CT abdomen report IMPRESSION:-------- 1. No good evidence of metastatic disease nor recurrent disease 2. . Minimal new interstitial infiltrate periphery of the L UL lobe/, towards left midlung. Could reflect reflect a minimal area of interstitial pneumonia. Clinical correlation required are there current/acute respiratory symptoms. 3 COPD Centrilobular emphysema with pulmonary fibrosis. 4. Mildly prominent pulmonary arteries may reflect underlying pulmonary arterial hypertension. 3. Postsurgical changes right apex right annita. With resultant Linear fibrosis and scarring most evident right lung. 4. Previously noted Stable 5 mm small opacity RUL most certainly related to this surgical scarring. 5. Avascular necrosis of the right humeral headagain noted. 6. Left mastectomy. No associated findings here 7. The nonspecific 14 mm left adrenal nodule again noted
--- NOTE | 2017-10-21 08:30 | CT_ITS ---
CT abdomen pelvis w con Ordering Physician: Janes Omer Patient Age: 76 years: Female HISTORY: Colon cancer COPD. HISTORY of left breast cancer as well. TECHNIQUE: Helical CT scanning performed through the abdomen and pelvis following 75 cc Isovue-370 along with oral contrast. Thickened axial images as well as Sagittal and axial and coronal reformats performed on the workstation. COMPARISON :Previous CT abdomen and pelvis 05/21/2017 The liver spleen pancreas unremarkable.. Cholecystectomy. No biliary ductal dilatation. Left adrenal nodule again observed and appear stable at 14 mm. Is intermediate density cannot do further characterize with presence of contrast no delayed image Postsurgical changes along the right colon... Previously noted Right colon lesion has been resected in the interval.. Lateral stable material evident in this region. Anastomosis region unremarkable. Intact. Coronal image 29 axial 31.. No abnormal pelvic nor retroperitoneal adenopathy. Uterus remains. The stomach and findings pelvis no pelvic mass. . Diffuse atherosclerotic calcification aorta as well as throughout proximal iliac and renal iliac. Spleen normal size. A moderate stool is seen throughout the colon with likely a few diverticula through the sigmoid colon but no diverticulitis. Small bowel appears normal. Hiatal hernia again noted 5.3 cm diameter Osseous structures appear intact IMPRESSION 1.. Interval surgery with resection right colon lesion. Region of anastomosis unremarkable Otherwise No new findings of concern No metastatic disease to the liver. No abnormal adenopathy 2. Left adrenal nodule again noted ~14 mm size -stable. Nonspecific character on this postcontrast scan 3. Moderate size Hiatal hernia-again noted. Stable
--- NOTE | 2017-10-21 09:00 | HMH.ITSHM ---
LEVOTHYROXINE,FERROUSSULFATE,GABAPENTIN CARVEDILOL RANTITDIEN AZITHRYOMIC ROSURVASTATIN PILOCARPINE LOSARTIN HCT, ADVAIR,PROAIR NYSTATIN ESOMEPRAZOLE
== END ==
PROVIDERS: PCP Internal Medicine Adolescent Medicine; Visit Provider Surgery
DX: Z03.89 Encounter for observation for other suspected diseases and conditions ruled out (principal); C18.9 Malignant neoplasm of colon, unspecified
CPT/HCPCS: 36415; 71260; 74177; 82565; 84520; Q9967

== ENCOUNTER → 2017-11-06 12:37 | Outpatient (CLI) | payer MEDICARE, MEDICAID, SELFPAY ==
--- NOTE | 2017-11-06 12:42 | XR_ITS ---
XR chest 2V HISTORY: COPD exacerbation ITS.REASON: COPD ORDERING PHYSICIAN: Aleksey Collins MD PATIENT AGE: 77 years COMPARISON: 10/04/2017 FINDINGS: Postsurgical changes are present on the right with COPD/hyperinflation/emphysema. Chronic pleural thickening noted in the right lung base with scarring in the right lower lobe laterally and left lung base. Previously noted patchy infiltrate in the right lung base has shown improvement. No evidence of CHF. No acute bony anomalies. IMPRESSION: COPD with postsurgical changes and scarring with no acute finding. Improved right lower lobe infiltrate
== END ==
PROVIDERS: PCP Internal Medicine Adolescent Medicine; Visit Provider Internal Medicine Adolescent Medicine
DX: J44.1 Chronic obstructive pulmonary disease with (acute) exacerbation (principal)
CPT/HCPCS: 71046

== ENCOUNTER → 2018-02-26 10:00 | Outpatient (CLI) | payer MEDICARE, MEDICAID, SELFPAY ==
--- NOTE | 2018-02-26 10:02 | CA_ITS ---
PROCEDURE: 2-D M-mode and color Doppler study INDICATIONS FOR THE TEST: Chest pain COPD+ Heart Murmur Tobacco Smoking+ Palpitations+ Fatigue Syncope Edema Hypertension+Diabetes Mellitus Rheumatic Fever SOB+VIVAR+Obesity Hyperlipidemia+ Family History HD Additional History Colon cancer, Lt mastectomy 1977 PATIENT INFORMATION HEIGHT:62 WEIGHT: 120 GENDER: Female B/P: 133/74 2-D/M-MODE INTERPRETATION: 2-D MEASUREMENTS OBSERVED VALUES IN CMS Right Ventricular Dimension (RVDd) 2.1 Interventricular Septum (Thickness)(IVsd) 0.9 Left Ventricular Internal Dimensions(LVIDd) 3.9 Left Ventricular Posterior Wall (Thickness)(LVPWd) 0.9 Aortic Root 2.3 Aortic Cusp Separation 1.2 Left Atrial Dimensions (LAD) 4.5 2D 1. Left atrium is mildly enlarged, left ventricle is normal size, there is no concentric left ventricular hypertrophy, visually estimated ejection fraction of 55% with no obvious regional wall motion abnormality. 2. The right atrium and right ventricle are normal size and contractility. 3. The aortic valve is minimally thickened and fibrosed. 4. The mitral and tricuspid valve are grossly normal. 5. The pulmonic valve is poorly visualized. 6. There is small pericardial effusion noted mostly in the anteroapical area. DOPPLER INTERROGATION: Doppler interrogation of the aortic, mitral and tricuspid valvular presence of mild mitral and tricuspid regurgitation, tricuspid and jet velocity is insufficient for acquisition of the right ventricular systolic pressure, diastolic parameters are inconclusive. CONCLUSION: 1. Mildly enlarged left atrium, normal left ventricular size, visually estimated ejection fraction 55% no signal wall motion abnormality. Diastolic parameters are inconclusive. 2. Mild mitral and tricuspid regurgitation 3. Small pericardial effusion noted as described above
== END ==
PROVIDERS: PCP Internal Medicine Adolescent Medicine; Visit Provider Internal Medicine
DX: I25.10 Atherosclerotic heart disease of native coronary artery without angina pectoris (principal); I48.91 Unspecified atrial fibrillation
CPT/HCPCS: 93306

== ENCOUNTER → 2018-03-28 10:05 | Outpatient (CLI) | payer MEDICARE, MEDICAID, SELFPAY | PROVIDERS: Visit Provider Nurse Practitioner Family | DX: J44.1 Chronic obstructive pulmonary disease with (acute) exacerbation (principal) | CPT/HCPCS: 87070; 87205 ==

== ENCOUNTER → 2018-06-12 14:24 | Outpatient (CLI) | payer MEDICARE, MEDICAID, SELFPAY ==
[2018-06-12 15:06] LABS: Blood Urea Nitrogen 24 mg/dL (7-18); Creatinine,Serum 1.23 mg/dL (0.55-1.02); Estimated Glomerular Filt Rate 42 ml/min (>60); GFR (African American) 51 ML/MIN (>60)
== END ==
PROVIDERS: PCP Internal Medicine Adolescent Medicine; Visit Provider Surgery
DX: Z01.818 Encounter for other preprocedural examination (principal); C18.9 Malignant neoplasm of colon, unspecified
CPT/HCPCS: 36415; 82565; 84520

== ENCOUNTER → 2018-06-17 08:48 | Outpatient (CLI) | payer MEDICARE, MEDICAID, SELFPAY ==
--- NOTE | 2018-06-17 09:05 | CT_ITS ---
CT chest w con HISTORY: Follow-up cancer of the colon ITS.REASON: COLON CA ORDERING PHYSICIAN: Janes Omer PATIENT AGE: 77 years COMPARISON: 10/21/2017 TECHNIQUE: Axial images obtained following the administration of 75 mL of Isovue 370 . Sagittal, and coronal reformatted images are also generated and reviewed. All CT scans at the facility use one or more dose reduction, viz: automated exposure control, ma/kV adjustment per patient size (including targeted exams where dose is matched to indication, i.e. head), or iterative reconstruction technique. FINDINGS: No mediastinal or hilar mass or adenopathy. There are coronary artery calcifications as well as calcifications of the aortic arch. Calcified nodes are present within the mediastinum. There is normal heart size. There is mild pericardial thickening anteriorly not significantly changed. There is a medium-sized hiatal hernia. Left atrium is somewhat enlarged with prominence of left atrial appendage Postsurgical changes are present in the right apex with scarring in this area. There has been prior right upper lobectomy. Scarring is present in the right perihilar region and right lung base anteriorly and laterally. There is been some increase in parenchymal density in the right lung base anteriorly. This however does have the appearance of progressive scarring as opposed to developing nodule. There could be some superimposed mild atelectasis. There are centrilobular emphysematous changes. No suspicious pulmonary nodules are evident. No effusions or infiltrates There has been prior left mastectomy. No bony destructive process evident. IMPRESSION: 1. No convincing evidence of metastatic disease. 2. No significant change compared to the previous study. 3. Centrilobular emphysema with postsurgical changes and scattered parenchymal scarring. 4. Coronary artery disease. Mild enlargement of left atrium with prominence of left atrial appendage
--- NOTE | 2018-06-17 09:05 | CT_ITS ---
CT abdomen pelvis w con CLINICAL INDICATION: Follow-up cancer of the colon ITS.REASON: COLON CA ORDERING PHYSICIAN: Janes Omer PATIENT AGE: 77 years COMPARISON: 10/21/2017 TECHNIQUE: Axial images obtained with sagittal and coronal reformats. All CT scans at the facility use one or more dose reduction, viz: automated exposure control, ma/kV adjustment per patient size (including targeted exams where dose is matched to indication, i.e. head), or iterative reconstruction technique. PROCEDURE: Oral Contrast: Redicat IV Contrast: 75 mL's of Isovue-370 performed in conjunction with chest CT. FINDINGS: There is moderate sized hiatal hernia. The liver, spleen, and right adrenal gland have an unremarkable appearance. Nodular enlargement of the left adrenal gland measuring up to 15 mm. This is stable compared to 05/21/2017 consistent with adenoma. No renal mass apparent. Renal arterial calcifications are noted. No retroperitoneal adenopathy. There is minimal ectasia of the infrarenal abdominal aorta measuring up to 2.1 cm. There is a moderate amount retained colonic feces. No intestinal obstruction or free air. There is diverticulosis of the descending and sigmoid colon. There has been prior partial right hemicolectomy of the cecum with enteric colic anastomosis. No pelvic mass or abnormal fluid collection or focal inflammatory change. No bony destructive process. IMPRESSION: 1. No convincing evidence of metastatic disease. 2. No change nodular enlargement of the left adrenal gland which may be due to adenoma. 3. Hiatal hernia. 4. Constipation. Prior colon surgery on the right
== END ==
PROVIDERS: PCP Internal Medicine Adolescent Medicine; Visit Provider Surgery
DX: Z03.89 Encounter for observation for other suspected diseases and conditions ruled out (principal); C18.9 Malignant neoplasm of colon, unspecified
CPT/HCPCS: 71260; 74177; Q9967

== ENCOUNTER → 2018-07-11 12:54 | Outpatient (CLI) | payer MEDICARE, MEDICAID, SELFPAY ==
[2018-07-11 14:39] LABS: Basophils % 0.5 % (0.1-2.0); Eosinophils # 0.1 K/mm3 (0.0-0.4); Eosinophils % 1.2 % (0.1-12.0); Hematocrit 34.8 % (37.0-47.0); Hemoglobin 11.7 g/dL (12.2-16.2); Lymphocytes # 1.5 K/mm3 (0.7-4.5); Lymphocytes % 20.3 K/mm3 (10-50); Mean Corpuscular HGB Conc 33.5 g/dL (31.8-35.4); Mean Corpuscular Hemoglobin 31.8 pg (27.0-31.2); Mean Corpuscular Volume 94.8 fl (81-99); Mean Platelet Volume 7.6 fl (7.4-10.4); Monocytes # 0.3 K/mm3 (0.1-1.0); Monocytes % 4.6 % (1.7-9.3); Neutrophils # 5.3 K/mm3 (1.8-7.8); Neutrophils % 73.3 % (37.0-80.0); Platelet Count 295 K/mm3 (142-424); Red Blood Count 3.67 M/mm3 (4.20-5.40); Red Cell Distribution Width 13.9 % (11.5-17.5); White Blood Count 7.2 K/mm3 (4.8-10.8)
[2018-07-11 15:25] LABS: Alanine Aminotransferase 46 U/L (12-78); Albumin Level 4.1 gm/dL (3.4-5.0); Albumin/Globulin Ratio 1.3 (1.1-1.8); Alkaline Phosphatase 98 U/L (46-116); Anion Gap 14.7 mEq/L (5-15); Aspartate Amino Transferase 35 U/L (15-37); Bilirubin,Total 0.3 mg/dL (0.2-1.0); Blood Urea Nitrogen 20 mg/dL (7-18); Calcium 9.3 mg/dL (8.5-10.1); Carbon Dioxide 28 mmol/L (21.0-32.0); Chloride 102 mmol/L (98-107); Cholesterol 156 mg/dL (140-200); Creatinine,Serum 1.05 mg/dL (0.55-1.02); Estimated Glomerular Filt Rate 51 ml/min (>60); GFR (African American) 61 ML/MIN (>60); Globulin 3.1 gm/dl (1.3-3.2); Glucose 103 mg/dL (74-106); HDL Cholesterol 77 mg/dL (29-89); LDL Cholesterol 57 mg/dL (0-130); Potassium 3.7 mmoL/L (3.5-5.1); Sodium 141 mmol/L (136-145); Thyroid Stimulating Hormone 0.52 uIU/ml (0.358-3.740); Total Protein,Serum 7.2 gm/dL (6.4-8.2); Triglycerides 109 mg/dL (30-200); VLDL Cholesterol 22 mg/dL (0-40)
== END ==
PROVIDERS: PCP Internal Medicine Adolescent Medicine; Visit Provider Internal Medicine Adolescent Medicine
DX: I10 Essential (primary) hypertension (principal); E03.9 Hypothyroidism, unspecified; D50.0 Iron deficiency anemia secondary to blood loss (chronic)
CPT/HCPCS: 36415; 80053; 80061; 84443; 85025

== ENCOUNTER → 2018-10-10 11:15 | Outpatient (CLI) | payer MEDICARE, MEDICAID, SELFPAY ==
--- NOTE | 2018-10-10 11:59 | XR_ITS ---
XR chest 2V HISTORY: ITS.REASON: dyspnea, amiodarone therapy, history of colon cancer ORDERING PHYSICIAN: Hi Mac MD PATIENT AGE: 77 years COMPARISON: 11/06/2017 FINDINGS: Normal heart size. Clips are present in the right suprahilar region and right apex. There is COPD with hyperinflation and attenuation of the peripheral pulmonary vessels. There are chronic changes in the lower lobes. A new nodular opacity is present in the left lower lung zone at 13 mm. The remaining lungs are clear. No acute bony anomalies. IMPRESSION: COPD with fibrotic changes in the lower lobes which may be slightly worse in the left lung base. Nodular opacity also noted left lower lobe. Suggest chest CT for further evaluation in this patient with history of amiodarone therapy and colon cancer.
[2018-10-10 14:11] LABS: Alanine Aminotransferase 31 U/L (12-78); Albumin Level 3.6 gm/dL (3.4-5.0); Alkaline Phosphatase 86 U/L (46-116); Aspartate Amino Transferase 21 U/L (15-37); Bilirubin,Direct 0.1 mg/dL (0.0-0.2); Bilirubin,Indirect 0.2 mg/dL (0.0-0.9); Bilirubin,Total 0.3 mg/dL (0.2-1.0); Free T4 (Free Thyroxine) 1.51 ng/dl (0.76-1.46); Thyroid Stimulating Hormone 6.74 uIU/ml (0.358-3.740); Total Protein,Serum 7.3 gm/dL (6.4-8.2)
== END ==
PROVIDERS: PCP Internal Medicine Adolescent Medicine; Visit Provider Internal Medicine Cardiovascular Disease
DX: I10 Essential (primary) hypertension; I25.10 Atherosclerotic heart disease of native coronary artery without angina pectoris; I48.2 Chronic atrial fibrillation; J44.1 Chronic obstructive pulmonary disease with (acute) exacerbation; R06.00 Dyspnea, unspecified; Z79.01 Long term (current) use of anticoagulants; Z79.899 Other long term (current) drug therapy; Z99.81 Dependence on supplemental oxygen; E78.49 Other hyperlipidemia
CPT/HCPCS: 36415; 71046; 80076; 83880; 84439; 84443

== ENCOUNTER → 2018-10-18 12:36 | Outpatient (CLI) | payer MEDICARE, MEDICAID, SELFPAY ==
[2018-10-18 14:08] LABS: Alanine Aminotransferase 24 U/L (12-78); Albumin Level 3.7 gm/dL (3.4-5.0); Alkaline Phosphatase 85 U/L (46-116); Aspartate Amino Transferase 22 U/L (15-37); Bilirubin,Direct 0.1 mg/dL (0.0-0.2); Bilirubin,Indirect 0.2 mg/dL (0.0-0.9); Bilirubin,Total 0.3 mg/dL (0.2-1.0); Blood Urea Nitrogen 17 mg/dL (7-18); Creatinine,Serum 1.26 mg/dL (0.55-1.02); Estimated Glomerular Filt Rate 41 ml/min (>60); Free Thyroxine Index 4.2 ug/dL (5.93-13.13); GFR (African American) 50 ML/MIN (>60); T4 (Thyroxine) 12.7 ug/dl (4.7-13.3); Thyroid Stimulating Hormone 6.64 uIU/ml (0.358-3.740); Total Protein,Serum 7.1 gm/dL (6.4-8.2); Triiodothryronine (T3) Uptake 33 % (31-39)
== END ==
PROVIDERS: Visit Provider Internal Medicine Cardiovascular Disease
DX: E78.5 Hyperlipidemia, unspecified (principal); I10 Essential (primary) hypertension; I25.10 Atherosclerotic heart disease of native coronary artery without angina pectoris; I48.91 Unspecified atrial fibrillation; J44.1 Chronic obstructive pulmonary disease with (acute) exacerbation; R06.00 Dyspnea, unspecified; Z79.01 Long term (current) use of anticoagulants; Z79.899 Other long term (current) drug therapy; Z99.81 Dependence on supplemental oxygen; I48.2 Chronic atrial fibrillation; E78.49 Other hyperlipidemia
CPT/HCPCS: 80076; 82565; 84436; 84443; 84479; 84520

== ENCOUNTER → 2018-10-20 12:46 | Outpatient (CLI) | payer MEDICARE, MEDICAID, SELFPAY ==
--- NOTE | 2018-10-20 12:48 | CT_ITS ---
CT chest wo/w con HISTORY: Abnormal chest x-ray, colon cancer, solitary pulmonary nodule evaluation ITS.REASON: abnormal chest x ray ORDERING PHYSICIAN: Hi Mac MD PATIENT AGE: 77 years COMPARISON: 10/10/2018, 07-03 Technique: Axial images obtained with sagittal and coronal reformats. EXAM is performed without and with contrast. 35 miles Optiray 350 given IV. High-resolution images are also obtained. All CT scans at the facility use one or more dose reduction, viz: automated exposure control, ma/kV adjustment per patient size (including targeted exams where dose is matched to indication, i.e. head), or iterative reconstruction technique. FINDINGS: No mediastinal or hilar mass or adenopathy is evident. There are coronary artery calcifications. There is minimal thickening of the pericardium anteriorly not significant changed. There is a medium-sized hiatal hernia There are centrilobular emphysematous changes with postsurgical changes in the right upper lobe. There are scattered fibrotic changes. There are new bilateral parenchymal opacities. Small density is present in the right lower lung zone anteriorly at 6 mm. There are scattered parenchymal opacities in the right lung base anteriorly and posteriorly. These are somewhat irregular in nature. Increase interstitial markings are present in the left lower lobe with interlobular septal thickening. There is a new irregular opacity in the lingula which measures 2.6 x 2.3 cm and is somewhat flat-like in nature. There is a 15 millimeter parenchymal opacity in the left lower lobe laterally. This is felt to represent the radiographic abnormality noted on the recent chest x-ray. Upper abdominal images show moderate sized hiatal hernia. There is a left adrenal nodule measuring 15 mm unchanged from 10/21/2017. No acute bony anomalies. There is a vascular process of the right humeral head IMPRESSION: 1. Emphysema/COPD with scattered fibrotic changes and postsurgical changes in the right upper lobe. 2. There are new bilateral parenchymal opacities present. These are not well-defined and could be inflammatory/infectious in nature. Cannot exclude the possibility of metastatic disease in this patient with history of colon cancer. The recent radiographic abnormality corresponds to a ill-defined 15 mm opacity in the left lower lobe which could be inflammatory/infectious or neoplastic. Does the patient have signs and symptoms of underlying pneumonia? Continued follow-up suggested.
== END ==
PROVIDERS: PCP Internal Medicine Adolescent Medicine; Visit Provider Internal Medicine Cardiovascular Disease
DX: R91.8 Other nonspecific abnormal finding of lung field (principal); R93.89 Abnormal findings on diagnostic imaging of other specified body structures
CPT/HCPCS: 71270; Q9967

== ENCOUNTER → 2019-01-09 15:54 | Outpatient (CLI) | payer MEDICARE, MEDICAID, SELFPAY ==
[2019-01-09 16:35] LABS: Basophils # 0.1 K/mm3 (0-0.2); Basophils % 0.5 % (0.1-2.0); Eosinophils # 0.1 K/mm3 (0.0-0.4); Eosinophils % 1.2 % (0.1-12.0); Hematocrit 38.2 % (37.0-47.0); Lymphocytes # 2.3 K/mm3 (0.7-4.5); Lymphocytes % 26.1 % (10-50); Mean Corpuscular HGB Conc 34.1 g/dL (31.8-35.4); Mean Corpuscular Hemoglobin 30.8 pg (27.0-31.2); Mean Corpuscular Volume 90.3 fl (81-99); Mean Platelet Volume 6.4 fl (7.4-10.4); Monocytes # 0.3 K/mm3 (0.1-1.0); Monocytes % 3.7 % (1.7-9.3); Neutrophils # 5.9 K/mm3 (1.8-7.8); Neutrophils % 68.5 % (37.0-80.0); Platelet Count 344 K/mm3 (142-424); Red Blood Count 4.23 M/mm3 (4.20-5.40); White Blood Count 8.7 K/mm3 (4.8-10.8)
[2019-01-09 17:14] LABS: Alanine Aminotransferase 31 U/L (12-78); Albumin Level 4.5 gm/dL (3.4-5.0); Albumin/Globulin Ratio 1.2 (1.1-1.8); Alkaline Phosphatase 90 U/L (46-116); Aspartate Amino Transferase 21 U/L (15-37); Bilirubin,Total 0.3 mg/dL (0.2-1.0); Blood Urea Nitrogen 22 mg/dL (7-18); Calcium 9.7 mg/dL (8.5-10.1); Carbon Dioxide 30 mmol/L (21.0-32.0); Chloride 100 mmol/L (98-107); Creatinine,Serum 1.15 mg/dL (0.55-1.02); Estimated Glomerular Filt Rate 45 ml/min (>60); GFR (African American) 55 ML/MIN (>60); Globulin 3.8 gm/dl (1.3-3.2); Glucose 101 mg/dL (74-106); Sodium 140 mmol/L (136-145); Total Protein,Serum 8.3 gm/dL (6.4-8.2)
== END ==
PROVIDERS: PCP Internal Medicine Adolescent Medicine; Visit Provider Internal Medicine Adolescent Medicine
DX: R42 Dizziness and giddiness (principal); R53.83 Other fatigue; R53.81 Other malaise
CPT/HCPCS: 36415; 80053; 85025

== ENCOUNTER → 2019-02-17 14:32 | Outpatient (POV) | payer MEDICARE, MEDICAID, SELFPAY | PROVIDERS: Visit Provider Internal Medicine | DX: Z00.00 Encounter for general adult medical examination without abnormal findings (principal) ==

== ENCOUNTER → 2019-02-26 07:50 | Outpatient (CLI) | payer MEDICARE, MEDICAID, SELFPAY ==
--- NOTE | 2019-02-26 07:54 | CT_ITS ---
CT chest wo con HISTORY: History of colon cancer, abnormal chest x-ray, shortness of air, follow-up abnormal chest CT ITS.REASON: ABNORMAL FINDINGS IN LUNG IMAGING ORDERING PHYSICIAN: Misha Vang MD PATIENT AGE: 78 years COMPARISON: 10/20/2018 Technique: Axial images obtained. Sagittal, and coronal reformatted images are also generated and reviewed. All CT scans at the facility use one or more dose reduction, viz: automated exposure control, ma/kV adjustment per patient size (including targeted exams where dose is matched to indication, i.e. head), or iterative reconstruction technique. FINDINGS: No mediastinal or hilar mass or adenopathy is evident. There are extensive coronary artery calcifications as well as calcification of the aortic root and aortic valve. There is a moderate-sized hiatal hernia. There are diffuse centrilobular emphysematous changes with postsurgical change and scarring right upper lobe. Prior right upper lobectomy. The previously described multiple parenchymal opacities have cleared in the interval consistent with resolution of inflammatory/infectious process. No effusions or infiltrates. There are some scattered fibrotic changes in the right upper lobe inferiorly and within the lingula. No effusions or infiltrates. No acute bony findings. IMPRESSION: 1. Interval resolution of the previously described multiple parenchymal opacities consistent with improvement in infectious/inflammatory process with no convincing evidence of metastatic disease. 2. Postsurgical changes with centrilobular emphysema. 3. Coronary artery disease
== END ==
PROVIDERS: PCP Internal Medicine Adolescent Medicine; Visit Provider Internal Medicine
DX: R91.8 Other nonspecific abnormal finding of lung field (principal); R06.02 Shortness of breath; J44.9 Chronic obstructive pulmonary disease, unspecified
CPT/HCPCS: 71250; 94060; 94618

== ENCOUNTER → 2019-03-31 13:03 | Outpatient (POV) | payer MEDICARE, MEDICAID, SELFPAY | PROVIDERS: Visit Provider Internal Medicine | DX: Z00.00 Encounter for general adult medical examination without abnormal findings (principal) ==

== ENCOUNTER → 2019-05-04 12:55 | Outpatient (CLI) | payer MEDICARE, MEDICAID, SELFPAY ==
[2019-05-04 13:14] LABS: Basophils % 0.4 % (0.1-2.0); Eosinophils # 0.1 K/mm3 (0.0-0.4); Eosinophils % 0.8 % (0.1-12.0); Hematocrit 35.8 % (37.0-47.0); Hemoglobin 11.8 g/dL (12.2-16.2); Lymphocytes # 1.5 K/mm3 (0.7-4.5); Mean Corpuscular Hemoglobin 31.9 pg (27.0-31.2); Mean Corpuscular Volume 96.8 fl (81-99); Mean Platelet Volume 6.8 fl (7.4-10.4); Monocytes # 0.5 K/mm3 (0.1-1.0); Monocytes % 4.8 % (1.7-9.3); Neutrophils % 79.1 % (37.0-80.0); Platelet Count 428 K/mm3 (142-424); Red Cell Distribution Width 13.9 % (11.5-17.5); White Blood Count 10.1 K/mm3 (4.8-10.8)
[2019-05-04 17:43] LABS: Alanine Aminotransferase 25 U/L (12-78); Albumin Level 3.8 gm/dL (3.4-5.0); Albumin/Globulin Ratio 1.1 (1.1-1.8); Alkaline Phosphatase 88 U/L (46-116); Anion Gap 14.9 mEq/L (5-15); Aspartate Amino Transferase 17 U/L (15-37); Bilirubin,Total 0.5 mg/dL (0.2-1.0); Blood Urea Nitrogen 20 mg/dL (7-18); Calcium 9.2 mg/dL (8.5-10.1); Carbon Dioxide 28 mmol/L (21.0-32.0); Chloride 96 mmol/L (98-107); Creatinine,Serum 1.12 mg/dL (0.55-1.02); Estimated Glomerular Filt Rate 47 ml/min (>60); GFR (African American) 57 ML/MIN (>60); Globulin 3.5 gm/dl (1.3-3.2); Glucose 99 mg/dL (74-106); Magnesium 1.5 mg/dL (1.4-2.2); Potassium 3.9 mmoL/L (3.5-5.1); Sodium 135 mmol/L (136-145); Thyroid Stimulating Hormone 4.36 uIU/ml (0.358-3.740); Total Protein,Serum 7.3 gm/dL (6.4-8.2)
[2019-05-06 00:26] LABS: Vitamin B12 331 pg/mL (232-1245)
== END ==
PROVIDERS: Visit Provider Nurse Practitioner Family
DX: R10.30 Lower abdominal pain, unspecified (principal); E03.9 Hypothyroidism, unspecified; R42 Dizziness and giddiness; I48.2 Chronic atrial fibrillation; I10 Essential (primary) hypertension
CPT/HCPCS: 36415; 80053; 82607; 83735; 84443; 85025

== ENCOUNTER → 2019-07-01 10:27 | Outpatient (CLI) | payer MEDICARE, MEDICAID, SELFPAY ==
--- NOTE | 2019-07-01 10:29 | FL_ITS ---
PROCEDURE: FL BARIUM SWALLOW MODIFIED CLINICAL INDICATION: PHARYNGEAL DYSPHAGIA COMPARISON: No exams were available for comparison TECHNIQUE: Patient administered varying consistencies of barium contrast, while viewed in lateral position under real-time fluoroscopy with cine recording. FLUOROSCOPY TIME:2 minutes and 8 seconds The study was performed in conjunction with speech pathologist. Please see that report & recommendations. FINDINGS: Patient was given varying consistencies of barium. Surgical clips are present overlying the upper neck anteriorly. There is excessive curvature of the epiglottis anteriorly and there are small osteophytes in the cervical spine. There was no evidence of this tubular penetration or tracheal aspiration. There was difficulty in the go shading the pill to the hypopharynx. The pill did get stuck initially between the curved epiglottis and the base of the tongue. The pill then washed on down IMPRESSION: No aspiration or penetration. There was difficulty in the go she ating the barium tablet which did initially get stuck along the anterior aspect of the curved epiglottis but eventually wash down Please see speech pathologist report and recommendations. The Dictated by: Brady Galvez MD 07/04/2019 06:50 Electronically signed by Brady Galvez MD in [place] 07/04/2019 06:50
--- NOTE | 2019-07-01 13:44 | HMH.SLMBS2 ---
Speech & Language Evaluation Speech/Language Mod Barium Swallow Start: 07/01/19 13:19 Freq: once Status: Complete Protocol: Document 07/01/19 13:19 VIKKI (Rec: 07/01/19 13:43 VIKKI [id number]) [facility] [place] Diet Dietary Recommendations Dysphagia Mechanical Soft, Ground Meats,Thin Liquids Comment Small pills only; larger meds crushed or cut Treatment/Strategies Strategy/Precaution Recommend Sitting Upright (90 deg) Mod Barium Swallow Impressions Summary and Impressions Oral Phase Impression Mild Impairment Oral Phase Summary no bottom teeth; upper denture . Pharyngeal Phase Impression Mild Impairment Pharyngeal Phase Summary Ms. Larson did not exhibit any difficulty with swallowing except for the barium pill with thin wash. Tablet got stuck in her epiglottis and was washed down with an additional swallow. Ms. Lencho Wilkins coughed excessively after the pill went into esophagus; no sign of aspiration or penetration. Cervical osteophytes noted in initial picture before presentation of consistencies; Rate of transit was not visibly changed; Visual atrophy of epiglottis noted characterized by excessive anterior curvature of epiglottis/ Speech/Language MBS Assessment/Goals/Plan Assessment Date of Evaluation: 07/01/19 Evaluation Type Initial Certification Assessment/Problems Pt. reports feeling of food getting stuck in throat and difficultly swallowing pills; Does Patient Qualify for Service No Qualify/Failure Comment Pt. does not require therapy at this time; Recommendations PHYSICIAN CERTIFICATION: The specified therapy services are required, authorized, and reviewed every 30 days. Diet Recommendations Dysphagia Mechanical Soft Liquid Type Recommendations Normal/Thin Crush Meds Small pills w/applesauce,Small OK/Crush large pill,Crush lge pills w/applesa Dysphagia Swallow Precautions/Strategies Sitting Upright (90 deg) Comment Pills should be crushed or cut into small
== END ==
PROVIDERS: PCP Internal Medicine Adolescent Medicine; Visit Provider Internal Medicine Adolescent Medicine
DX: R13.13 Dysphagia, pharyngeal phase (principal)
CPT/HCPCS: 70371; 92611

== ENCOUNTER → 2019-07-06 08:38 | Outpatient (CLI) | payer MEDICARE, MEDICAID, SELFPAY ==
--- NOTE | 2019-07-06 09:01 | CT_ITS ---
PROCEDURE: CT CHEST W CON CLINCAL INDICATION: COLON CANCER Follow-up colon cancer COMPARISON: CHESTWO CT chest wo con from 02/26/2019 CT ABDOMEN PELVIS W CON from 07/06/2019 TECHNIQUE: IV Contrast: 75ml Optiray 320 Axial images obtained with sagittal and coronal reformats. All CT scans at the facility use one or more dose reduction, viz: automated exposure control, ma/kV adjustment per patient size (including targeted exams where dose is matched to indication, i.e. head), or iterative reconstruction technique. FINDINGS: No mediastinal or hilar mass or adenopathy. Diffuse coronary artery calcifications are once again noted. There is a small to medium-sized hiatal hernia with mild thickening of the wall the stomach which is nonspecific and may be due to nondistention. There is diffuse centrilobular emphysema with COPD changes. Postsurgical changes are present in the right apex. Scattered areas of scarring is noted as before. There are mild atelectatic changes in the lung bases. No suspicious pulmonary nodules are evident. No central obstructing lesions. No lobar consolidation or collapse. No effusions no bony destructive process. Atherosclerotic changes involve the descending thoracic aorta. There is a small shallow atherosclerotic ulcer involving the posterior aspect of the descending thoracic aorta. IMPRESSION: 1. No convincing evidence of metastatic disease. 2. COPD with centrilobular emphysema and scattered areas of fibrosis with atelectatic change. 3. Extensive coronary artery calcification. 4. Small atherosclerotic ulcer involving the descending thoracic aorta 5. Medium-sized hiatal hernia Dictated by: Brady Galvez MD 07/07/2019 09:39 Electronically signed by Brady Galvez MD in [place] 07/07/2019 09:39
--- NOTE | 2019-07-06 09:01 | CT_ITS ---
PROCEDURE: CT ABDOMEN PELVIS W CON CLINICAL INDICATION: COLON CANCER Follow-up colon cancer COMPARISON: [facility] CT CHEST W/ CONTRAST from 06/22/[address] ABD PELVIS W/ CONTRAST from 05/21/[address] abdomen pelvis w con from 06/17/2018 TECHNIQUE: IV Contrast: 75ML OPTIRAY 350 Oral Contrast 450ml Redicat Axial images obtained with sagittal and coronal reformats. All CT scans at the facility use one or more dose reduction, viz: automated exposure control, ma/kV adjustment per patient size (including targeted exams where dose is matched to indication, i.e. head), or iterative reconstruction technique. FINDINGS: Lower thorax: Please see chest CT for lower thorax description ABDOMEN & PELVIS: There is a medium-sized hiatal hernia. No focal liver lesion evident.. The spleen, right adrenal gland, and pancreas are unremarkable. There are post cholecystectomy changes. No suspicious renal mass. Fat there are small bilateral renal cyst. The left adrenal gland is enlarged at 1.3 cm not significantly changed. Right adrenal gland is unremarkable. The adrenal glands size is unchanged from 06/22/2014. There are postsurgical changes from prior partial right hemicolectomy. There is a small umbilical hernia which contains fat. There is diverticulosis of the descending and sigmoid colon. No intestinal obstruction or free air is evident. In the left pelvic region there is a soft tissue mass which measures 5.2 x 5.4 cm. This does contain some gas centrally and is in direct continuity with the sigmoid colon. This was not present on the previous exam. This could be either a colon neoplasm with central necrosis or an abscess. Small bowel drapes around the medial aspect of this lesion. This is in the left adnexal area with the uterus located medially to the right of this lesion. There is extensive atherosclerotic changes of the aortoiliac vessels. No bony destructive process. No pelvic adenopathy IMPRESSION: 1. 5.4 cm hypodense mass in the left pelvic region contiguous with the sigmoid colon with some central gas. The the sigmoid colon appears to drape along the superior aspect of this lesion. The small bowel is medial to this lesion as is the uterus. Differential diagnosis includes a necrotic neoplasm of the sigmoid colon versus diverticular abscess. An ovarian mass/neoplasm from the left adnexa is an additional consideration with involvement of the adjacent sigmoid colon. Sigmoidoscopy suggested for further evaluation. 2. The diverticulosis involves the descending and sigmoid colon. No inflammatory changes are evident within the mesenteric fat. 3. No evidence of hepatic metastasis. 4. Per surgical changes of the right colon. 5. Stable left adrenal nodule Dictated by: Brady Galvez MD 07/07/2019 09:52 Electronically signed by Brady Galvez MD in [place] 07/07/2019 09:52
[2019-07-06 09:23] LABS: Blood Urea Nitrogen 13 mg/dL (7-18); Creatinine,Serum 0.89 mg/dL (0.55-1.02); Estimated Glomerular Filt Rate 61 ml/min (>60); GFR (African American) 74 ML/MIN (>60)
== END ==
PROVIDERS: Visit Provider Surgery
DX: C18.9 Malignant neoplasm of colon, unspecified (principal)
CPT/HCPCS: 36415; 71260; 74177; 82565; 84520; Q9967

== ENCOUNTER → 2019-08-05 15:20 | Outpatient (CLI) | payer MEDICARE, MEDICAID, SELFPAY ==
[2019-08-05 15:47] LABS: Basophils % 0.4 % (0.1-2.0); Eosinophils # 0.1 K/mm3 (0.0-0.4); Eosinophils % 1.1 % (0.1-12.0); Hematocrit 34.6 % (37.0-47.0); Lymphocytes # 1.5 K/mm3 (0.7-4.5); Lymphocytes % 14.7 % (10-50); Mean Corpuscular HGB Conc 31.8 g/dL (31.8-35.4); Mean Corpuscular Hemoglobin 29.9 pg (27.0-31.2); Mean Platelet Volume 7.6 fl (7.4-10.4); Monocytes # 0.5 K/mm3 (0.1-1.0); Monocytes % 5.1 % (1.7-9.3); Neutrophils % 78.7 % (37.0-80.0); Platelet Count 451 K/mm3 (142-424); Red Blood Count 3.68 M/mm3 (4.20-5.40); Red Cell Distribution Width 14.2 % (11.5-17.5); White Blood Count 10.1 K/mm3 (4.8-10.8)
[2019-08-05 19:22] LABS: Anion Gap 14.5 mEq/L (5-15); Blood Urea Nitrogen 16 mg/dL (7-18); Calcium 8.7 mg/dL (8.5-10.1); Carbon Dioxide 28 mmol/L (21.0-32.0); Chloride 103 mmol/L (98-107); Creatinine,Serum 1.24 mg/dL (0.55-1.02); Estimated Glomerular Filt Rate 42 ml/min (>60); GFR (African American) 50 ML/MIN (>60); Glucose 104 mg/dL (74-106); Potassium 3.5 mmoL/L (3.5-5.1); Sodium 142 mmol/L (136-145)
== END ==
PROVIDERS: Visit Provider Internal Medicine Adolescent Medicine
DX: R60.9 Edema, unspecified (principal); R06.09 Other forms of dyspnea
CPT/HCPCS: 36415; 80048; 85025

== ENCOUNTER → 2019-08-10 12:55 | Outpatient (CLI) | payer MEDICARE, MEDICAID, SELFPAY ==
--- NOTE | 2019-08-10 13:00 | CA_ITS ---
APPROVED REPORT EXAM: Comprehensive 2D, Doppler, and color-flow Echocardiogram Merchandise Supervisor: Maddie Mitchell RT(R) Ht: 5 ft 2 in Wt: 120lbs BSA: 1.54 BP: 131/63 mmHg Indications: EX smoker, edema, HTN, VIVAR, hyperlipidemia, CAD, AFIB, GERD 2D Dimensions LVOT 1.70 cm (M/F) 1.5-2.5 M-Mode Dimensions RVDd 1.43 cm (0.9-2.6) LVDd 4.94 cm (3.5-5.7) LVDs 3.90 cm (3.5-5.7) IVSd 0.93 cm (0.6-1.1) PWd 0.60 cm (0.6-1.1) EF (Teich) 42.70% FS 21.10% EDV (Teich) 115.00 mL ESV (Teich) 65.90 mL LV Diastology E/A Ratio 3.93 Mitral Valve MV A Velocity 26.00 (40-130 cm/s) Left Ventricle Left atrium is mildly enlarged, left ventricle is normal size, mild concentric left ventricular hypertrophy, visually estimated ejection fraction 50% with no regional wall motion abnormality, diastolic parameters are inconclusive. Right Ventricle Right atrium and right ventricle mildly enlarged with normal contractility. Aortic Valve Aortic valve is thickened and calcified leaflet continue to display good mobility, there is no aortic stenosis or aortic insufficiency. Mitral Valve Mitral valve is grossly normal, there is mild mitral regurgitation. Tricuspid Valve Tricuspid valve is grossly normal, there is mild tricuspid regurgitation. Tricuspid regurgitation reflux is inadequate for calculation of the right ventricular systolic pressure. Pulmonic Valve Pulmonic valve is poorly visualized. Great Vessels Aortic root is normal size. Pericardium No significant pericardial effusion noted. Conclusion 1. Mild biatrial enlargement, normal left ventricular size, mild concentric left ventricular hypertrophy, visually estimated ejection fraction of 55% with no regional wall motion abnormality, diastolic parameters are inconclusive. 2. Mildly enlarged right ventricle with normal contractility. 3. Thickened and calcified aortic valve without Doppler evidence of aortic stenosis aortic insufficiency. 4. Mild mitral and tricuspid regurgitation 5. No significant pericardial effusion noted. Electronically signed by : Hi Mac, 08/10/2019 21:00:38
== END ==
PROVIDERS: PCP Internal Medicine Adolescent Medicine; Visit Provider Internal Medicine Adolescent Medicine
DX: R60.9 Edema, unspecified (principal); R06.09 Other forms of dyspnea
CPT/HCPCS: 93306

== ENCOUNTER 2019-08-17 10:57 | Inpatient (IN) ==
--- NOTE | 2019-08-17 13:43 | Consult Report ---
History of Present Illness Consult date: 08/17/19 Requesting physician: Elvin Reyna Consult reason: atrial fibrillation Chief complaint: weakness Additional Medical History:: 1. Coronary artery disease 2. Hypertension 3. Hyperlipidemia 4. Atrial fibrillation 5. Long-term anticoagulation History of present illness: This is an 78-year-old white female who came into the hospital today to have a colonoscopy. The patient was unable to drink all of the prep prior to the colonoscopy so her procedure was canceled. When the patient arrived for her procedure she was found to be in atrial fibrillation with RVR. Her heart rate was around 150. The patient has chronic atrial fibrillation but she is typically rate controlled. She is in RVR today. She denies feeling any racing of the heart or palpitations. The patient does report that she has not been taking her medications how she is supposed to. Her rapid ventricular response is likely just from her not taking her rate control medications as prescribed. She states that she is weak and has been fatigued for a very long time but she did not know that her heart was in a rapid ventricular response. She denies any chest pain or pressure. She is chronically short of breath and on home oxygen. She says that she has edema in her legs when she stands on them for too long. No edema is noted on exam. She denies any fever, chills, nausea, vomiting, diarrhea, PND or orthopnea. [facility] History I have reviewed the patient's past medical history: Yes Medical History: Reports:: Atrial Fibrillation, Cancer, Chronic Obstructive Pulmonary Disease (COPD), Coronary Artery Disease, Gastroesophageal Reflux Disease(GERD), Hyperlipidemia, Hypertension, Lung Disease Denies:: Diabetes Mellitus Type 1, Diabetes Mellitus Type 2, Internal Pacemaker, MRSA, Seizures *Have you ever received a pneumonia vaccine?: Yes *Have you received a flu vaccine this season?: Yes Other Medical History: Reports: Cataracts, Hypothyroidism Laterality Cases: Right: Other Other Surgeries: Yes: Cancer Surgery, Cardiac Catheterization, Colonoscopy, Colon Resection, Dilation and Curettage, EGD, Thyroidectomy. No: Pacemaker Amputation: No Fractures: No - *Social History Educational Level: Attended High School Smoking Status: Former smoker Tobacco Type: cigarettes #Yrs smoked (if former smoker): 30 Smoking End Date: 09/16/2003 Alcohol Intake: never Alcohol Intake Frequency:: other Substance Use Type: denies use *Occupational Status:: retired Housing: apartment Household Members: none *Travel in the last 8 weeks: None Family Hx:: Anemia, Cancer, Hyperlipidemia, Hypertension Meds Home Medications Medication Instructions Recorded Confirmed Type Esomeprazole Magnesium 40 mg PO DAILY 09/24/17 08/17/19 History Gabapentin [Gabapentin 300mg Cap] 600 mg PO HS 09/24/17 08/17/19 History Levothyroxine Sodium 75 mcg PO DAILY 09/24/17 08/17/19 History [Levothyroxine 75mcg (0.075mg) Tab] Pilocarpine HCl 5 mg PO TID 09/24/17 08/17/19 History Rosuvastatin Calcium [Crestor] 10 mg PO DAILY 09/24/17 08/17/19 History Fluticasone/Salmeterol [Advair 1 puff INHALATION BID 09/25/17 08/17/19 History 250/50mcg Diskus] apixaban 2.5 mg tablet 2.5 mg PO BID #180 tab 06/19/19 08/17/19 Rx diltiazem CD 120 mg 120 mg PO DAILY #90 cap 07/27/19 08/17/19 Rx capsule,extended release 24 hr metoprolol tartrate 25 mg tablet 25 mg PO BID #180 tab 07/27/19 08/17/19 Rx Losartan/Hydrochlorothiazide 1 tab PO DAILY 08/12/19 08/17/19 History [Hyzaar 50-12.5 Tablet] Allergies Allergy/AdvReac Type Severity Reaction Status Date / Time aspirin [ASPIRIN] Allergy Unknown "BLEEDING" Verified 08/17/19 11:32 Penicillins Allergy Unknown FACIAL Verified 08/17/19 11:32 NUMBNESS Review of Systems - Review of Systems Review of systems:: pertinent systems reviewed and negative unless documented below - Constitutional Reports fatigue, Reports lack of energy, Reports weakness - *Cardiovascular Reports leg swelling - *Respiratory Reports shortness of breath, Reports shortness of breath with activity Exam Vital signs and Labs for Last 24 Hours: Temp Pulse Resp BP Pulse Ox 98.5 F 161 H 24 156/92 H 95 08/17/19 11:38 08/17/19 11:38 08/17/19 11:38 08/17/19 11:38 08/17/19 11:38 I & O for Last 24 hours: Intake & Output 08/14/19 08/15/19 08/16/19 08/17/19 23:59 23:59 23:59 23:59 Weight 121 lb Narrative: EKG is atrial fibrillation with rapid ventricular response - Constitutional no acute distress, average body habitus - *Routine HEENT Exam Head: Present: normocephalic, atraumatic Eye: Present: EOMI, PERRL ENT: Present: mucous membranes moist - *Routine Neck Exam Present: supple, full ROM, normal carotid upstroke. Absent: JVD, carotid bruit, lymphadenopathy - *Routine Respiratory Exam Present: CTA bilaterally - *Routine Cardiovascular Exam Present: Normal S1, Normal S2, tachycardia, irregularly irregular. Absent: murmur - *Routine Abdominal Exam Present: soft, normoactive bowel sounds. Absent: tenderness, distended - *Routine Extremities Exam Present: full ROM, pulses intact, normal capillary refill. Absent: cyanosis, clubbing, edema - *Routine Skin Exam Present: intact, warm. Absent: erythema, rash - *Routine Neurological Exam Present: alert, oriented X3, CN II-XII intact. Absent: sensory deficit, motor deficit - Routine Psychiatric Exam Present: normal affect, normal thought process - Detailed Eye Exam Eyelids: Left normal inspection Assessment and Plan (1) Atrial fibrillation with RVR Current visit: No Status: Chronic Category: Medical Code(s): I48.91 - Unspecified atrial fibrillation (2) CAD (coronary artery disease) Current visit: No Status: Chronic Qualifiers: Coronary Disease-Associated Artery/Lesion type: [place] artery [place] vs. transplanted heart: [place] heart Associated angina: without angina Qualified Code(s): I25.10 - Atherosclerotic heart disease of [place] coronary artery without angina pectoris Category: Medical Code(s): I25.10 - Atherosclerotic heart disease of [place] coronary artery without angina pectoris (3) Current use of ferry terminal supervisor anticoagulation Current visit: No Status: Chronic Category: Medical Code(s): Z79.01 - termite control representative (current) use of anticoagulants (4) HLD (hyperlipidemia) Current visit: No Status: Chronic Qualifiers: Hyperlipidemia type: other hyperlipidemia Category: Medical Code(s): E78.5 - Hyperlipidemia, unspecified (5) HTN (hypertension) Current visit: No Status: Chronic Qualifiers: Hypertension type: essential hypertension Qualified Code(s): I10 - Essential (primary) hypertension Category: Medical Code(s): I10 - Essential (primary) hypertension (6) Oxygen dependent Current visit: Yes Status: Chronic Category: Medical Code(s): Z99.81 - Dependence on supplemental oxygen (7) COPD (chronic obstructive pulmonary disease) Current visit: Yes Status: Chronic Category: Medical Code(s): J44.9 - Chr onic obstructive pulmonary disease, unspecified - Assessment and plan all Dx Assessment and Plan for all problems:: Plan: 1. Patient came into the hospital for colonoscopy. Her colonoscopy has been canceled because she was unable to drink all the prep. Patient was also found to be in atrial fibrillation with RVR. Her heart rate was around 150. Upon my exam the patient's heart rate is up to 163. She denies any palpitations or racing of the heart. She denies any chest pain or chest pressure. The patient reports that she has not been taking her meds appropriately. Her rapid ventricular response is most likely from her not taking her rate control medications. We will give her a dose of Cardizem CD 240 mg p.o. now to see if she will rate control. 2. The patient does have a history of coronary artery disease. She denies any chest pain or pressure. No plans for invasive cardiac testing at this time. 3. Her blood pressure is well controlled. 4. Her LDL goal is less than 55. 5. Patient does have chronic atrial fibrillation. She is on long-term anticoagulation with Eliquis. 6. Further recommendations will be made pending patient's response to the Cardizem CD. If she rate controls then the patient will be able to be discharged home from the preop area. If she remains tachycardic with RVR 1 hour after being given Cardizem CD, then will likely have to admit the patient for rate control of her atrial fibrillation. Thank you for the opportunity to help participate in the care of this patient.
--- NOTE | 2019-08-17 19:56 | History & Physical Report ---
*Admission Date: 08/17/19 *Chief complaint: Atrial fibrillation with RVR *History of present illness: This is an 78-year-old white female who came into the hospital today to have a colonoscopy. The patient was unable to drink all of the prep prior to the colonoscopy so her procedure was canceled. When the patient arrived for her procedure she was found to be in atrial fibrillation with RVR. Her heart rate was around 150. The patient has chronic atrial fibrillation but she is typically rate controlled. She is in RVR today. She denies feeling any racing of the heart or palpitations. The patient does report that she has not been taking her medications how she is supposed to. Her rapid ventricular response is likely just from her not taking her rate control medications as prescribed. She states that she is weak and has been fatigued for a very long time but she did not know that her heart was in a rapid ventricular response. She denies any chest pain or pressure. She is chronically short of breath and on home oxygen. She says that she has edema in her legs when she stands on them for too long. No edema is noted on exam. She denies any fever, chills, nausea, vomiting, diarrhea, PND or orthopnea. Above note per cardiology, admitted to special care unit for initiation of Cardizem drip. [facility] History I have reviewed the patient's past medical history: Yes Medical History: Reports:: Atrial Fibrillation, Cancer, Chronic Obstructive Pulmonary Disease (COPD), Coronary Artery Disease, Gastroesophageal Reflux Disease(GERD), Hyperlipidemia, Hypertension, Lung Disease Denies:: Diabetes Mellitus Type 1, Diabetes Mellitus Type 2, Internal Pacemaker, MRSA, Seizures *Have you ever received a pneumonia vaccine?: Yes *Have you received a flu vaccine this season?: Yes Other Medical History: Reports: Cataracts, Hypothyroidism Laterality Cases: Right: Other Other Surgeries: Yes: Cancer Surgery, Cardiac Catheterization, Colonoscopy, Colon Resection, Dilation and Curettage, EGD, Thyroidectomy. No: Pacemaker Amputation: No Fractures: No - *Social History Educational Level: Attended High School Smoking Status: Former smoker Tobacco Type: cigarettes #Yrs smoked (if former smoker): 30 Smoking End Date: 09/16/2003 Alcohol Intake: never Alcohol Intake Frequency:: other Substance Use Type: denies use *Occupational Status:: retired Housing: apartment Household Members: none *Travel in the last 8 weeks: None Family Hx:: Anemia, Cancer, Hyperlipidemia, Hypertension Review of Systems - Review of Systems Review of systems:: pertinent systems reviewed and negative unless documented below - Constitutional Reports anorexia, Reports fatigue - Eyes Denies blind spots - ENT Denies abnormal hearing, Denies poor balance, Denies dizziness - *Cardiovascular Reports irregular heart rhythm, Denies chest pain, Denies chest pain at rest - *Respiratory Denies change in phlegm color, Denies shortness of breath with activity, Denies coughing up blood - *Gastrointestinal Comments: Very suspicious CAT scan for tumor, urgent colonoscopy has been ordered today by [facility] - *Musculoskeletal Denies abnormal walking, Denies limited joint movement - Integumentary/Breasts Denies bleeding lesions - *Neurologic Reports weakness Meds Home Medications Medication Instructions Recorded Confirmed Type Esomeprazole Magnesium 40 mg PO DAILY 09/24/17 08/17/19 History Gabapentin [Gabapentin 300mg Cap] 600 mg PO HS 09/24/17 08/17/19 History Levothyroxine Sodium 75 mcg PO DAILY 09/24/17 08/17/19 History [Levothyroxine 75mcg (0.075mg) Tab] Pilocarpine HCl 5 mg PO TID 09/24/17 08/17/19 History Rosuvastatin Calcium [Crestor] 10 mg PO DAILY 09/24/17 08/17/19 History Fluticasone/Salmeterol [Advair 1 puff INHALATION BID 09/25/17 08/17/19 History 250/50mcg Diskus] apixaban 2.5 mg tablet 2.5 mg PO BID #180 tab 06/19/19 08/17/19 Rx diltiazem CD 120 mg 120 mg PO DAILY #90 cap 07/27/19 08/17/19 Rx capsule,extended release 24 hr metoprolol tartrate 25 mg tablet 25 mg PO BID #180 tab 07/27/19 08/17/19 Rx Losartan/Hydrochlorothiazide 1 tab PO DAILY 08/12/19 08/17/19 History [Hyzaar 50-12.5 Tablet] Allergies Allergy/AdvReac Type Severity Reaction Status Date / Time aspirin [ASPIRIN] Allergy Unknown "BLEEDING" Verified 08/17/19 11:32 Penicillins Allergy Unknown FACIAL Verified 08/17/19 11:32 NUMBNESS Exam Vital signs and Labs for Last 24 Hours: Temp Pulse Resp BP Pulse Ox 98.5 F 161 H 24 156/92 H 95 08/17/19 11:38 08/17/19 11:38 08/17/19 11:38 08/17/19 11:38 08/17/19 11:38 I & O for Last 24 hours: Intake & Output 08/15/19 08/16/19 08/17/19 08/18/19 11:59 11:59 11:59 11:59 Intake Total 120 / 120 Output Total 100 / 100 Balance Weight 121 lb 112 lb Narrative: Awake, alert, oriented x3. Oropharynx clear. No JVD. Heart rate irregular in the 110 range. Blood pressure well controlled. Abdomen soft, lungs clear. No skin lesions. Distal extremities warm and well-perfused. No neurologic deficits. Assessment and Plan (1) Atrial fibrillation with RVR Current visit: No Status: Chronic Category: Medical Code(s): I48.91 - Unspecified atrial fibrillation (2) CAD (coronary artery disease) Current visit: No Status: Chronic Qualifiers: Coronary Disease-Associated Artery/Lesion type: [place] artery [place] vs. 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 Current visit: No Status: Chronic Category: Medical Code(s): Z79.01 - senior living (current) use of anticoagulants (4) HLD (hyperlipidemia) Current visit: No Status: Chronic Qualifiers: Hyperlipidemia type: other hyperlipidemia Category: Medical Code(s): E78.5 - Hyperlipidemia, unspecified (5) HTN (hypertension) Current visit: No Status: Chronic Qualifiers: Hypertension type: essential hypertension Qualified Code(s): I10 - Essential (primary) hypertension Category: Medical Code(s): I10 - Essential (primary) hypertension (6) Oxygen dependent Current visit: Yes Status: Chronic Category: Medical Code(s): Z99.81 - Dependence on supplemental oxygen (7) COPD (chronic obstructive pulmonary disease) Current visit: Yes Status: Chronic Category: Medical Code(s): J44.9 - Chronic obstructive pulmonary disease, unspecified - Assessment and plan all Dx Assessment and Plan for all problems:: Admit to special care unit. Initiate Cardizem drip. Cardiology will follow along. Continue current home medications.
[2019-08-18 06:42] LABS: Albumin Level 2.7 gm/dL (3.4-5.0); Albumin/Globulin Ratio 0.8 (1.1-1.8); Anion Gap 13.6 mEq/L (5-15); Bilirubin,Total 0.4 mg/dL (0.2-1.0); Calcium 8.1 mg/dL (8.5-10.1); Globulin 3.6 gm/dl (1.3-3.2); Total Protein,Serum 6.3 gm/dL (6.4-8.2)
--- NOTE | 2019-08-18 07:30 | Progress Note ---
Subjective Date: 08/18/19 Time: 07:26 Principal diagnosis: A. fib with RVR Interval history: 78 yo WF at bedside eating breakfast in NAD. HR <100 bpm during the night on 5 mg/hr of diltiazem gtt. Since waking HR increased to 110-120's bpm. Pt denies any chest pain, pressure or tightness. Exam Vital signs and Labs for Last 24 Hours: Temp Pulse Resp BP Pulse Ox 98.4 F 86 18 120/66 97 08/18/19 04:00 08/18/19 06:00 08/18/19 06:00 08/18/19 06:00 08/18/19 06:00 Laboratory Results - last 24 hr 08/18/19 05:56: Sodium 145, Potassium 2.6 L*, Chloride 106, Carbon Dioxide 28, Anion Gap 13.6, BUN 12, Creatinine 0.81, Estimated Creat Clear 36, Estimated GFR 68, Est GFR ( Amer) 82, Glucose 94, Calcium 8.1 L, Total Bilirubin 0.4, AST 20, ALT 14, Alkaline Phosphatase 84, Total Protein 6.3 L, Albumin 2.7 L, Globulin 3.6 H, Albumin/Globulin Ratio 0.8 L I & O for Last 24 hours: Intake & Output 08/15/19 08/16/19 08/17/19 08/18/19 11:59 11:59 11:59 11:59 Intake Total 775 / 775 Output Total 400 / 400 Balance 375 / 375 Weight 121 lb 112 lb 5 oz - *Routine HEENT Exam Head: Present: normocephalic Eye: Present: EOMI, PERRL ENT: Present: mucous membranes moist - *Routine Respiratory Exam Present: CTA bilaterally. Absent: accessory muscle use, rales, rhonchi, wheezes - *Routine Cardiovascular Exam Present: tachycardia, irregularly irregular. Absent: murmur, gallop, rubs - *Routine Extremities Exam Absent: edema, calf tenderness - *Routine Neurological Exam Present: alert, oriented X3, moving all extremities Progress Note: A&P (1) Atrial fibrillation with RVR Status: Chronic Current Visit: No (2) CAD (coronary artery disease) Status: Chronic Current Visit: No (3) Current use of custodial anticoagulation Status: Chronic Current Visit: No (4) HLD (hyperlipidemia) Status: Chronic Current Visit: No (5) HTN (hypertension) Status: Chronic Current Visit: No (6) Oxygen dependent Status: Chronic Current Visit: Yes (7) COPD (chronic obstructive pulmonary disease) Status: Chronic Current Visit: Yes Assessment and Plan for All Diagnoses:: 1. Increase diltiazem gtt to 10 mg/hr and follow HR/BP. Restart metoprolol 25 mg BID. 2. Hypokalemia, on supplement. Mag level pending. 3. restart chronic anticoagulation for chronic a. fib 4. timing of colonoscopy to be discussed as outpatient 5. Possibly home later today
--- NOTE | 2019-08-18 07:30 | Pharmacy Consult Notes ---
[facility] Pharmacy VTE Monitoring - Patient Demographics Admission date: 08/17/19 Report Date: 08/18/19 Time: 07:30 Allergies/Adverse Reactions: Patient Allergies aspirin [ASPIRIN] Allergy (Unknown, Verified 08/17/19 11:32) "BLEEDING" Penicillins Allergy (Unknown, Verified 08/17/19 11:32) FACIAL NUMBNESS Height: 1.57 m Weight: 50.944 kg Patient Problems: Current Active Problems COPD (chronic obstructive pulmonary disease) (Chronic) Oxygen dependent (Chronic) - VTE Risk Labs: VTE Related Lab Results BUN 12 mg/dL (7-18) 08/18/19 05:56 Creatinine 0.81 mg/dL (0.55-1.02) 08/18/19 05:56 Estimated Creat Clear 36 mL/min (50-200) 08/18/19 05:56 Was VTE Risk Assessment Performed: Yes VTE Score: 2 VTE Risk Level: Very Low Risk - Prophylaxis VTE Prophylaxis Ordered?: Yes Types of VTE Prophylaxis: TEDS Knee High Location of Applied Device: Bilateral Lower Extremeties - VTE Diagnosis Confirmed Treatment or plan recommended: Continue Current Treatment
--- NOTE | 2019-08-18 07:58 | Discharge Summary ---
General - General Admission date:: 08/17/19 Discharge date: 08/18/19 HPI HPI: This is an 78-year-old white female who came into the hospital today to have a colonoscopy. The patient was unable to drink all of the prep prior to the colonoscopy so her procedure was canceled. When the patient arrived for her procedure she was found to be in atrial fibrillation with RVR. Her heart rate was around 150. The patient has chronic atrial fibrillation but she is typically rate controlled. She is in RVR today. She denies feeling any racing of the heart or palpitations. The patient does report that she has not been taking her medications how she is supposed to. Her rapid ventricular response is likely just from her not taking her rate control medications as prescribed. She states that she is weak and has been fatigued for a very long time but she did not know that her heart was in a rapid ventricular response. She denies any chest pain or pressure. She is chronically short of breath and on home oxygen. She says that she has edema in her legs when she stands on them for too long. No edema is noted on exam. She denies any fever, chills, nausea, vomiting, diarrhea, PND or orthopnea. Above note per cardiology, admitted to special care unit for initiation of Cardizem drip. Objective Vital signs: Temp Pulse Resp BP Pulse Ox 98.4 F 115 H 22 115/68 95 08/18/19 04:00 08/18/19 07:51 08/18/19 07:51 08/18/19 07:51 08/18/19 07:51 Results Labs on day of discharge: Labs from last 24 hours 08/18/19 08/18/19 05:56 05:56 Sodium 145 Potassium 2.6 L* Chloride 106 Carbon Dioxide 28 Anion Gap 13.6 BUN 12 Creatinine 0.81 Estimated Creat Clear 36 Estimated GFR 68 Est GFR ( Amer) 82 Glucose 94 Calcium 8.1 L Magnesium 1.3 L Total Bilirubin 0.4 AST 20 ALT 14 Alkaline Phosphatase 84 Total Protein 6.3 L Albumin 2.7 L Globulin 3.6 H Albumin/Globulin Ratio 0.8 L DS: Diagnosis - Discharge Diagnosis (1) Atrial fibrillation with RVR Status: Chronic (2) CAD (coronary artery disease) Status: Chronic (3) Current use of computer terminal operator anticoagulation Status: Chronic (4) HLD (hyperlipidemia) Status: Chronic (5) HTN (hypertension) Status: Chronic (6) Oxygen dependent Status: Chronic (7) COPD (chronic obstructive pulmonary disease) Status: Chronic Discharge Plan - Patient Discharge Instructions Patient Instructions: Chronic Obstructive Pulmonary Disease (Alternative Therapy), Chronic Obstructive Pulmonary Disease, Atrial Fibrillation, DI for Chronic Obstructive Pulmonary Disease, DI for Atrial Fibrillation - Follow up Plan Home Medications: Home Medications Medication Instructions Recorded Confirmed Type Esomeprazole Magnesium 40 mg PO DAILY 09/24/17 08/17/19 History Gabapentin [Gabapentin 300mg Cap] 600 mg PO HS 09/24/17 08/17/19 History Levothyroxine Sodium 75 mcg PO DAILY 09/24/17 08/17/19 History [Levothyroxine 75mcg (0.075mg) Tab] Pilocarpine HCl 5 mg PO TID 09/24/17 08/17/19 History Fluticasone/Salmeterol [Advair 1 puff INHALATION BID 09/25/17 08/17/19 History 250/50mcg Diskus] apixaban 2.5 mg tablet 2.5 mg PO BID #180 tab 06/19/19 08/17/19 Rx diltiazem CD 120 mg 120 mg PO DAILY #90 cap 07/27/19 08/17/19 Rx capsule,extended release 24 hr metoprolol tartrate 25 mg tablet 25 mg PO BID #180 tab 07/27/19 08/17/19 Rx Losartan/Hydrochlorothiazide 1 tab PO DAILY 08/12/19 08/17/19 History [Hyzaar 50-12.5 Tablet] Azithromycin 250 mg PO QODHS 08/17/19 08/17/19 History Rosuvastatin Calcium 10 mg PO DAILY 08/18/19 08/18/19 History Prescriptions/Medication Reconciliation: No Action apixaban 2.5 mg tablet 2.5 mg PO BID #180 tab diltiazem CD 120 mg capsule,extended release 24 hr 120 mg PO DAILY #90 cap metoprolol tartrate 25 mg tablet 25 mg PO BID #180 tab Levothyroxine Sodium [Levothyroxine 75mcg (0.075mg) Tab] 75 mcg PO DAILY Pilocarpine HCl 5 mg PO TID Gabapentin [Gabapentin 300mg Cap] 600 mg PO HS Esomeprazole Magnesium 40 mg PO DAILY Azithromycin 250 mg PO QODHS Rosuvastatin Calcium 10 mg PO DAILY Fluticasone/Salmeterol [Advair 250/50mcg Diskus] 1 puff INHALATION BID Losartan/Hydrochlorothiazide [Hyzaar 50-12.5 Tablet] 1 tab PO DAILY - Problem Reconciliation Problems Reviewed?: Yes
--- NOTE | 2019-08-18 20:32 | Progress Note ---
Internal Medicine - PN: Subj *Date: 08/18/19 *Time: 08:50 Interval history: Placed on Cardizem drip overnight. Tolerated well with good rate control. Denies any CP this morning. SOA stable on NC O2. No Fevers. Has still not had a BM this morning, unfortunately did no tolerate prep well for ehr colonoscopy. Transitioned to PO CCB and BB this morning. Poor appetite. Exam Vital signs and Labs for Last 24 Hours: Temp Pulse Resp BP Pulse Ox 98.3 F 116 H 26 H 150/89 H 96 08/18/19 16:00 08/18/19 18:00 08/18/19 18:00 08/18/19 18:00 08/18/19 18:00 Laboratory Results - last 24 hr 08/18/19 05:56: Sodium 145, Potassium 2.6 L*, Chloride 106, Carbon Dioxide 28, Anion Gap 13.6, BUN 12, Creatinine 0.81, Estimated Creat Clear 36, Estimated GFR 68, Est GFR ( Amer) 82, Glucose 94, Calcium 8.1 L, Total Bilirubin 0.4, AST 20, ALT 14, Alkaline Phosphatase 84, Total Protein 6.3 L, Albumin 2.7 L, Globulin 3.6 H, Albumin/Globulin Ratio 0.8 L 08/18/19 05:56: Magnesium 1.3 L I & O for Last 24 hours: Intake & Output 08/15/19 08/16/19 08/17/19 08/18/19 23:59 23:59 23:59 23:59 Intake Total 240 / 240 1578 / 1578 Output Total 400 / 400 250 / 250 Balance -160 / -160 1328 / 1328 Weight 50.802 kg 53.581 kg Narrative: Awake, alert, oriented x3. Oropharynx clear. No JVD. Heart rate irregular in the 80s-100s. Blood pressure well controlled. Abdomen soft, lungs clear, stable on 2L NC. Distal extremities warm and well-perfused. No neurologic deficits. Assessment and Plan (1) Atrial fibrillation with RVR Current visit: No Status: Chronic Category: Medical Code(s): I48.91 - Unspecified atrial fibrillation (2) CAD (coronary artery disease) Current visit: No Status: Chronic Qualifiers: Coronary Disease-Associated Artery/Lesion type: [place] artery [place] vs. transplanted heart: barrow heart Associated angina: without angina Qualified Code(s): I25.10 - Atherosclerotic heart disease of b[place] coronary artery without angina pectoris Category: Medical Code(s): I25.10 - Atherosclerotic heart disease of [place] coronary artery without angina pectoris (3) Current use of custodial anticoagulation Current visit: No Status: Chronic Category: Medical Code(s): Z79.01 - senior care (current) use of anticoagulants (4) HLD (hyperlipidemia) Current visit: No Status: Chronic Qualifiers: Hyperlipidemia type: other hyperlipidemia Category: Medical Code(s): E78.5 - Hyperlipidemia, unspecified (5) HTN (hypertension) Current visit: No Status: Chronic Qualifiers: Hypertension type: essential hypertension Qualified Code(s): I10 - Essential (primary) hypertension Category: Medical Code(s): I10 - Essential (primary) hypertension (6) Oxygen dependent Current visit: Yes Status: Chronic Category: Medical Code(s): Z99.81 - Dependence on supplemental oxygen (7) COPD (chronic obstructive pulmonary disease) Current visit: Yes Status: Chronic Category: Medical Code(s): J44.9 - Ch ronic obstructive pulmonary disease, unspecified (8) Hypokalemia Current visit: Yes Status: Acute Category: Medical Code(s): E87.6 - Hypokalemia (9) Hypomagnesemia Current visit: Yes Status: Acute Category: Medical Code(s): E83.42 - Hypomagnesemia - Assessment and plan all Dx Assessment and Plan for all problems:: 78 yo F with uncertain mass in abdomen. Attempted COlonoscopy with failur eto tolerate due to Afib w/ RVR and poor prep. Monitored overnight after initiated on Cardizem drip with improved rate control. Remained hemodynamically stable overnight. Transitioned to PO regimen today with continued tachy arrythmia. Titrate dosage today. Monitor for further improvement. Cardiology consulted, appreciate recs. Replacing Electrolytes PRN. Monitor for tolerance of PO meds and improved rate control. Likely DC tomorrow. PLan to discuss case with GI Surgery at for further work-up and management of abdominal mass.
[2019-08-19 06:39] LABS: Anion Gap 11.9 mEq/L (5-15); Calcium 8.7 mg/dL (8.5-10.1)
--- NOTE | 2019-08-19 08:24 | Progress Note ---
Internal Medicine - PN: Subj *Date: 08/19/19 *Time: 08:22 Interval history: Overnight patient continues to feel shortness of air when she moves around, was able to sleep comfortably. Labs show improving potassium and magnesium levels. Exam Vital signs and Labs for Last 24 Hours: Temp Pulse Resp BP Pulse Ox 98.6 F 87 17 117/60 94 L 08/19/19 04:00 08/19/19 04:00 08/19/19 04:00 08/19/19 04:00 08/19/19 04:00 Laboratory Results - last 24 hr 08/19/19 05:40: Sodium 144, Potassium 3.9 D, Chloride 108 H, Carbon Dioxide 28, Anion Gap 11.9, BUN 8 D, Creatinine 0.77, Estimated Creat Clear 37, Estimated GFR 72, Est GFR ( Amer) 87, Glucose 95, Calcium 8.7, Magnesium 2.5 H D I & O for Last 24 hours: Intake & Output 08/16/19 08/17/19 08/18/19 08/19/19 11:59 11:59 11:59 11:59 Intake Total 1115 / 1115 1228 / 1228 Output Total 550 / 550 300 / 300 Balance 565 / 565 928 / 928 Weight 121 lb 112 lb 5 oz 116 lb 9 oz Narrative: Patient remains in atrial fibrillation with rapid response in the high 110-120 range. Lungs have fairly good air movement for her. No crackles or rhonchi. Abdomen soft. Trace ankle edema. Neurologic exam intact. Oropharynx clear and moist. No JVD. Assessment and Plan (1) Atrial fibrillation with RVR Current visit: No Status: Chronic Category: Medical Code(s): I48.91 - Unspecified atrial fibrillation (2) CAD (coronary artery disease) Current visit: No Status: Chronic Qualifiers: Coronary Disease-Associated Artery/Lesion type: [place] artery [place] vs. transplanted heart: tribal heart Associated angina: without angina Qualified Code(s): I25.10 - Atherosclerotic heart disease of tribal coronary artery without angina pectoris Category: Medical Code(s): I25.10 - Atherosclerotic heart disease of tribal coronary artery without angina pectoris (3) Current use of carbonation equipment tender anticoagulation Current visit: No Status: Chronic Category: Medical Code(s): Z79.01 - [facility] (current) use of anticoagulants (4) HLD (hyperlipidemia) Current visit: No Status: Chronic Qualifiers: Hyperlipidemia type: other hyperlipidemia Category: Medical Code(s): E78.5 - Hyperlipidemia, unspecified (5) HTN (hypertension) Current visit: No Status: Chronic Qualifiers: Hypertension type: essential hypertension Qualified Code(s): I10 - Essential (primary) hypertension Category: Medical Code(s): I10 - Essential (primary) hypertension (6) Oxygen dependent Current visit: Yes Status: Chronic Category: Medical Code(s): Z99.81 - Dependence on supplemental oxygen (7) COPD (chronic obstructive pulmonary disease) Current visit: Yes Status: Chronic Category: Medical Code(s): J44.9 - Chronic obstructive pulmonary disease, unspecified (8) Hypokalemia Current visit: Yes Status: Acute Category: Medical Code(s): E87.6 - Hypokalemia (9) Hypomagnesemia Current visit: Yes Status: Acute Category: Medical Code(s): E83.42 - Hypomagnesemia - Assessment and plan all Dx Assessment and Plan for all problems:: Patient is somewhat improving. However even with increased diltiazem dose and beta-estevan remains in symptomatically uncontrolled atrial fibrillation. Cardiology reevaluation today. Electrolytes have improved.
--- NOTE | 2019-08-19 10:24 | Progress Note ---
Subjective Date: 08/19/19 Time: 10:20 Principal diagnosis: A. fib with RVR Interval history: This is an 78-year-old female who was admitted to the hospital for atrial fibrillation with RVR. The patient was in preop on Saturday to have a colonoscopy and her procedure was canceled because she did not drink the prep. Also when the patient arrived to the hospital she was found to be in atrial fibrillation with RVR and a rate around 163. The patient has been admitted to the hospital and was started on a Cardizem drip. Her heart rate did improve and she was converted over to oral Cardizem yesterday and continued on her oral metoprolol. Her heart rate is under better control but still having episodes of tachycardia. Her heart rate during my examination is around 80. She states that when she is up walking around she is having tachycardia and shortness of breath. She states she is short of breath all the time even at rest but when she is exerting herself the shortness of breath is much worse. She is attributing her worsening shortness of breath to the atrial fibrillation with RVR. She denies any chest pain or pressure. She denies any edema. She denies any fever, chills, nausea, vomiting, diarrhea, PND or orthopnea. Exam Vital signs and Labs for Last 24 Hours: Temp Pulse Resp BP Pulse Ox 98.3 F 139 H 20 142/99 H 92 L 08/19/19 08:00 08/19/19 08:00 08/19/19 08:00 08/19/19 08:00 08/19/19 08:00 Laboratory Results - last 24 hr 08/19/19 05:40: Sodium 144, Potassium 3.9 D, Chloride 108 H, Carbon Dioxide 28, Anion Gap 11.9, BUN 8 D, Creatinine 0.77, Estimated Creat Clear 37, Estimated GFR 72, Est GFR ( Amer) 87, Glucose 95, Calcium 8.7, Magnesium 2.5 H D I & O for Last 24 hours: Intake & Output 08/16/19 08/17/19 08/18/19 08/19/19 23:59 23:59 23:59 23:59 Intake Total 240 / 240 1578 / 1578 885 / 885 Output Total 400 / 400 450 / 450 Balance -160 / -160 1128 / 1128 885 / 885 Weight 112 lb 118 lb 2 oz 116 lb 9 oz Narrative: Telemetry strip shows atrial fibrillation with a rate of 85. - Constitutional no acute distress, average body habitus - *Routine HEENT Exam Head: Present: normocephalic, atraumatic Eye: Present: EOMI, PERRL ENT: Present: mucous membranes moist - *Routine Neck Exam Present: supple, full ROM, normal carotid upstroke. Absent: JVD, carotid bruit, lymphadenopathy - *Routine Respiratory Exam Present: decreased breath sounds, wheezes (Inspiratory and expiratory wheezes noted throughout) - *Routine Cardiovascular Exam Present: Normal S1, Normal S2, irregularly irregular. Absent: murmur, gallop - *Routine Abdominal Exam Present: soft, normoactive bowel sounds. Absent: tenderness, distended - *Routine Extremities Exam Present: full ROM, pulses intact, normal capillary refill. Absent: cyanosis, clubbing, edema - *Routine Skin Exam Present: intact, warm. Absent: erythema, rash - *Routine Neurological Exam Present: alert, oriented X3, CN II-XII intact, moving all extremities. Absent: sensory deficit, motor deficit - Detailed Eye Exam Eyelids: Left normal inspection Progress Note: A&P (1) Atrial fibrillation with RVR Status: Chronic Current Visit: No (2) CAD (coronary artery disease) Status: Chronic Current Visit: No (3) Current use of oil heaterman anticoagulation Status: Chronic Current Visit: No (4) HLD (hyperlipidemia) Status: Chronic Current Visit: No (5) HTN (hypertension) Status: Chronic Current Visit: No (6) Oxygen dependent Status: Chronic Current Visit: Yes (7) COPD (chronic obstructive pulmonary disease) Status: Chronic Current Visit: Yes (8) Hypokalemia Status: Acute Current Visit: Yes (9) Hypomagnesemia Status: Acute Current Visit: Yes Assessment and Plan for All Diagnoses:: Plan: 1. The patient was admitted to the hospital with atrial fibrillation with RVR. She was started on a Cardizem drip and her heart rate did improve. She was converted over to oral Cardizem and restarted on her metoprolol. The patient's heart rate is better but still having episodes of tachycardia. We will increase her Cardizem CD to 240 mg p.o. twice daily for better heart rate control 2. We will also increase her metoprolol to 50 mg p.o. twice daily for better heart rate control and give her an additional dose of Metoprolol 25 mg p.o. now. 3. If the patient is still having tachycardia then we may need to consider giving her digoxin. Her renal function is normal. 4. The patient is on Eliquis for long-term anticoagulation. 5. Coronary artery disease is likely stable. She denies any chest pain or pressure. 6. Her blood pressure is elevated. Increasing the metoprolol and Cardizem CD will likely also improve her blood pressure as well. 7. Her LDL goal is less than 55. 8. The patient is short of breath. She does have COPD. However, she states that since her heart has been having trouble she has noticed she is more short of breath than normal. She is on continuous oxygen. We will see if her shortness of breath improves as we improve her heart rate. 9. Further recommendations will be made pending the patient's response to treatment. Thank you for the opportunity to help participate in the care of this patient.
--- NOTE | 2019-08-19 22:29 | Discharge Summary ---
General - General Admission date:: 08/17/19 Discharge date: 08/22/19 HPI HPI: This is an 78-year-old white female who came into the hospital today to have a colonoscopy. The patient was unable to drink all of the prep prior to the colonoscopy so her procedure was canceled. When the patient arrived for her procedure she was found to be in atrial fibrillation with RVR. Her heart rate was around 150. The patient has chronic atrial fibrillation but she is typically rate controlled. She is in RVR today. She denies feeling any racing of the heart or palpitations. The patient does report that she has not been taking her medications how she is supposed to. Her rapid ventricular response is likely just from her not taking her rate control medications as prescribed. She states that she is weak and has been fatigued for a very long time but she did not know that her heart was in a rapid ventricular response. She denies any chest pain or pressure. She is chronically short of breath and on home oxygen. She says that she has edema in her legs when she stands on them for too long. No edema is noted on exam. She denies any fever, chills, nausea, vomiting, diarrhea, PND or orthopnea. Above note per cardiology, admitted to special care unit for initiation of Cardizem drip. Hospital Course Hospital Course: Ms. Patterson was initially admitted to the hospital due to A. fib with RVR. She had held her medications and preparation for a colonoscopy. Unfortunately she was unable to move forward with a colonoscopy due to intolerance of the prep and her uncontrolled A. fib. We have had a difficult time over the course of the week getting her A. fib under control. Initially resumed her home regimen which did not get it under control, though reportedly had great control at home prior to this episode. Increased medications over the course of her stay causing symptomatic bradycardia. Transition to back to home regimen with gradual increase to slightly higher metoprolol dose with improved rate control though still occasionally tachycardic especially with stress or movement. At this time patient denies any chest pain. Reports shortness of breath is stable. Denies any nausea or vomiting. Complains of some mild weakness. Tolerating good p.o. intake. Is hemodynamically stable even in the setting of variable heart rate. Medically she is stable for discharge home with close follow-up in the outpatient setting to further adjust medications as needed. In regard to her abdominal mass for which she was going to have the colonoscopy, have touch base with her GI surgeon at and recommended further work-up and testing be performed in their facility as she will likely need inpatient management for bowel prep and observation of her her cardiac function during procedures. In communicating with him, they are planning to touch base with her the first of the week to set up further diagnostic imaging and procedures. Objective Vital signs: Temp Pulse Resp BP Pulse Ox 98.4 F 108 H 16 134/77 97 08/19/19 20:00 08/19/19 20:00 08/19/19 20:00 08/19/19 20:00 08/19/19 20:00 Narrative: Patient in A. fib on exam. Heart rate 90s Lungs have good air movement bilaterally, No crackles or rhonchi. Abdomen soft, nontender Trace ankle edema. Neurologic exam intact. Alert and oriented to person place and time Oropharynx clear and moist. No JVD. Results Labs on day of discharge: Labs from last 24 hours 08/19/19 05:40 Sodium 144 Potassium 3.9 D Chloride 108 H Carbon Dioxide 28 Anion Gap 11.9 BUN 8 D Creatinine 0.77 Estimated Creat Clear 37 Estimated GFR 72 Est GFR ( Amer) 87 Glucose 95 Calcium 8.7 Magnesium 2.5 H D DS: Diagnosis - Discharge Diagnosis (1) Atrial fibrillation with RVR Status: Chronic (2) CAD (coronary artery disease) Status: Chronic (3) Current use of mcc anticoagulation Status: Chronic (4) HLD (hyperlipidemia) Status: Chronic (5) HTN (hypertension) Status: Chronic (6) Oxygen dependent Status: Chronic (7) COPD (chronic obstructive pulmonary disease) Status: Chronic (8) Hypokalemia Status: Resolved (9) Hypomagnesemia Status: Resolved Discharge Plan - Patient Discharge Instructions ACTIVITY: Continue current activity DIET: continue same diet Patient Instructions: Chronic Obstructive Pulmonary Disease (Alternative Therapy), Chronic Obstructive Pulmonary Disease, Atrial Fibrillation, DI for Chronic Obstructive Pulmonary Disease, DI for Atrial Fibrillation - Follow up Plan Follow up with: Janes Omer MD [Staff Physician] - Misha Jones MD [Staff Physician] - Disposition: Home, Self-Alf Medications: Home Medications Medication Instructions Recorded Confirmed Type Esomeprazole Magnesium 40 mg PO DAILY 09/24/17 08/17/19 History Gabapentin [Gabapentin 300mg Cap] 600 mg PO HS 09/24/17 08/17/19 History Pilocarpine HCl 5 mg PO TID 09/24/17 08/17/19 History Fluticasone/Salmeterol [Advair 1 puff INHALATION BID 09/25/17 08/17/19 History 250/50mcg Diskus] apixaban 2.5 mg tablet 2.5 mg PO BID #180 tab 06/19/19 08/17/19 Rx diltiazem CD 120 mg 120 mg PO DAILY #90 cap 07/27/19 08/17/19 Rx capsule,extended release 24 hr Azithromycin 250 mg PO MOWEFR 08/17/19 08/18/19 History Furosemide [Furosemide 20mg Tab] 20 mg PO DAILY 08/18/19 08/18/19 History Levothyroxine Sodium 88 mcg PO DAILY 08/18/19 08/18/19 History [Levothyroxine 88mcg (0.088mg) Tab] Rosuvastatin Calcium 10 mg PO DAILY 08/18/19 08/18/19 History Umeclidinium Brm/Vilanterol Tr 1 puff IH DAILY 08/18/19 08/18/19 History [Anoro Ellipta 62.5-25 Mcg INH] Metoprolol Tartrate [Lopressor 37.5 mg PO BID 30 Days #90 tab 08/22/19 Rx 25mg tablet] Prescriptions/Medication Reconciliation: New Metoprolol Tartrate [Lopressor 25mg tablet] 37.5 mg PO BID 30 Days #90 tab Continued apixaban 2.5 mg tablet 2.5 mg PO BID #180 tab diltiazem CD 120 mg capsule,extended release 24 hr 120 mg PO DAILY #90 cap Pilocarpine HCl 5 mg PO TID Gabapentin [Gabapentin 300mg Cap] 600 mg PO HS Esomeprazole Magnesium 40 mg PO DAILY Azithromycin 250 mg PO MOWE Rosuvastatin Calcium 10 mg PO DAILY Furosemide [Furosemide 20mg Tab] 20 mg PO DAILY Levothyroxine Sodium [Levothyroxine 88mcg (0.088mg) Tab] 88 mcg PO DAILY Umeclidinium Brm/Vilanterol Tr [Anoro Ellipta 62.5-25 Mcg INH] 1 puff IH FREDY LY Fluticasone/Salmeterol [Advair 250/50mcg Diskus] 1 puff INHALATION BID Discontinued metoprolol tartrate 25 mg tablet 25 mg PO BID #180 tab - Problem Reconciliation Problems Reviewed?: Yes
--- NOTE | 2019-08-20 10:27 | Progress Note ---
Subjective Date: 08/20/19 Time: 10:24 Principal diagnosis: A. fib with RVR Interval history: This is an 78-year-old white female who was admitted to the hospital with atrial fibrillation with RVR. She was in preop on Saturday to have a colonoscopy and the procedure was canceled because she did not drink the prep and when she arrived at the hospital she was found to be in atrial fibrillation with RVR with a heart rate around 163. The patient is now rate controlled. This morning her heart rate is in the 60s. She states that she is feeling better today. She states her shortness of breath has improved but she is still short of breath with exertion but this is improved as well. They did increase her oxygen to 3 L/min last night. She denies any chest pain or pressure. She denies any edema, fever, chills, nausea, vomiting, diarrhea, PND or orthopnea. Exam Vital signs and Labs for Last 24 Hours: Temp Pulse Resp BP Pulse Ox 100.3 F H 101 H 20 126/62 96 08/20/19 08:00 08/20/19 08:00 08/20/19 08:00 08/20/19 08:00 08/20/19 08:00 I & O for Last 24 hours: Intake & Output 08/17/19 08/18/19 08/19/19 08/20/19 23:59 23:59 23:59 23:59 Intake Total 240 / 240 1578 / 1578 1365 / 1365 240 / 240 Output Total 400 / 400 450 / 450 360 / 360 Balance -160 / -160 1128 / 1128 1005 / 1005 240 / 240 Weight 112 lb 118 lb 2 oz 116 lb 9.005 oz 116 lb 9 oz Narrative: Telemetry strip shows atrial fibrillation with a rate of 64. - Constitutional no acute distress, average body habitus - *Routine HEENT Exam Head: Present: normocephalic, atraumatic Eye: Present: EOMI, PERRL ENT: Present: mucous membranes moist - *Routine Neck Exam Present: supple, full ROM, normal carotid upstroke. Absent: JVD, carotid bruit, lymphadenopathy - *Routine Respiratory Exam Present: decreased breath sounds, wheezes (Expiratory wheezing throughout) - *Routine Cardiovascular Exam Present: Normal S1, Normal S2, irregularly irregular. Absent: murmur - *Routine Abdominal Exam Present: soft, normoactive bowel sounds. Absent: tenderness, distended - *Routine Extremities Exam Present: full ROM, pulses intact, normal capillary refill. Absent: cyanosis, clubbing, edema - *Routine Skin Exam Present: intact, warm. Absent: erythema, rash - *Routine Neurological Exam Present: alert, oriented X3, CN II-XII intact. Absent: sensory deficit, motor deficit - Detailed Eye Exam Eyelids: Left normal inspection Progress Note: A&P (1) Atrial fibrillation with RVR Status: Chronic Current Visit: No (2) CAD (coronary artery disease) Status: Chronic Current Visit: No (3) Current use of collateral analyst anticoagulation Status: Chronic Current Visit: No (4) HLD (hyperlipidemia) Status: Chronic Current Visit: No (5) HTN (hypertension) Status: Chronic Current Visit: No (6) Oxygen dependent Status: Chronic Current Visit: Yes (7) COPD (chronic obstructive pulmonary disease) Status: Chronic Current Visit: Yes (8) Hypokalemia Status: Resolved Current Visit: Yes (9) Hypomagnesemia Status: Resolved Current Visit: Yes Assessment and Plan for All Diagnoses:: Plan: 1. The patient was admitted to the hospital with atrial fibrillation with RVR. She was started on a Cardizem drip and her heart rate did improve. She was converted to oral Cardizem and restarted on her home metoprolol. The patient's heart rate was better but she was still tachycardic. Yesterday her Cardizem and her metoprolol will both increased and now today she is rate controlled. 2. Continue metoprolol and Cardizem CD at current doses 3. She is on long-term anticoagulation with Eliquis. 4. She does have a history of coronary artery disease. She denies any chest pain or pressure. No plans for invasive cardiac testing at this time. 5. Her blood pressure is well controlled. 6. Her LDL goal is less than 55. 7. The patient does have COPD. She is short of breath but this is better today. She reports that they increased her oxygen to 3 L/min last night and she has been feeling much better with the increase in the oxygen. Will defer this to her primary care provider. 8. No further recommendations at this time from a cardiac standpoint. The patient is stable for discharge home today from a cardiac standpoint. She will need to follow-up in our outpatient cardiology clinic in 1 to 2 weeks. Thank you for the opportunity to help participate in the care of this patient.
--- NOTE | 2019-08-20 15:15 | Progress Note ---
Internal Medicine - PN: Subj *Date: 08/20/19 *Time: 15:12 Interval history: Initially saw Ms. Patterson this morning and she was doing well. Was planning to discharge her home on aggressive regimen with calcium channel blockers and beta blockers for her A. fib with RVR. Unfortunately through the course of the day she developed some symptomatic bradycardia. Has been transitioned to the ICU for further management. Is hemodynamically stable however heart rate in the 40s. Holding medications at this time. Denies chest pain but does complain of some nausea. No confusion, headache, shortness of breath beyond baseline. Tolerating regular diet with good urine output Exam Vital signs and Labs for Last 24 Hours: Temp Pulse Resp BP Pulse Ox 97.3 F L 59 L 18 106/77 L 90 L 08/20/19 11:13 08/20/19 11:13 08/20/19 11:13 08/20/19 11:13 08/20/19 11:13 I & O for Last 24 hours: Intake & Output 08/17/19 08/18/19 08/19/19 08/20/19 23:59 23:59 23:59 23:59 Intake Total 240 / 240 1578 / 1578 1365 / 1365 240 / 240 Output Total 400 / 400 450 / 450 360 / 360 Balance -160 / -160 1128 / 1128 1005 / 1005 240 / 240 Weight 50.802 kg 53.581 kg 52.872 kg 52.872 kg Narrative: Patient in controlled A. fib on initial assessment this morning. Bradycardic on reassessment after lunch. Lungs have fairly good air movement for her, No crackles or rhonchi. Abdomen soft, nontender Trace ankle edema. Neurologic exam intact. Oropharynx clear and moist. No JVD. Assessment and Plan (1) Atrial fibrillation with RVR Current visit: No Status: Chronic Category: Medical Code(s): I48.91 - Unspecified atrial fibrillation (2) CAD (coronary artery disease) Current visit: No Status: Chronic Qualifiers: Coronary Disease-Associated Artery/Lesion type: [place] artery [place] vs. transplanted heart: [place] heart Associated angina: without angina Qualified Code(s): I25.10 - Atherosclerotic heart disease of [place] coronary artery without angina pectoris Category: Medical Code(s): I25.10 - Atherosclerotic heart disease of [place] coronary artery without angina pectoris (3) Current use of detention anticoagulation Current visit: No Status: Chronic Category: Medical Code(s): Z79.01 - USP (current) use of anticoagulants (4) HLD (hyperlipidemia) Current visit: No Status: Chronic Qualifiers: Hyperlipidemia type: other hyperlipidemia Category: Medical Code(s): E78.5 - Hyperlipidemia, unspecified (5) HTN (hypertension) Current visit: No Status: Chronic Qualifiers: Hypertension type: essential hypertension Qualified Code(s): I10 - Essential (primary) hypertension Category: Medical Code(s): I10 - Essential (primary) hypertension (6) Oxygen dependent Current visit: Yes Status: Chronic Category: Medical Code(s): Z99.81 - Dependence on supplemental oxygen (7) COPD (chronic obstructive pulmonary disease) Current visit: Yes Status: Chronic Category: Medical Code(s): J44.9 - Chronic obstructive pulmonary disease, unspecified (8) Hypokalemia Current visit: Yes Status: Resolved Category: Medical Code(s): E87.6 - Hypokalemia (9) Hypomagnesemia Current visit: Yes Status: Resolved Category: Medical Code(s): E83.42 - Hypomagnesemia - Assessment and plan all Dx Assessment and Plan for all problems:: 78-year-old with history of A. fib and abdominal mass. Difficulty getting heart rate controlled on steady regimen. Stopped beta-blockers and calcium channel blockers today. Will resume tomorrow at home dose and monitor for stable heart rate control. Otherwise patient hemodynamically stable. No other disturbances that need correcting today. Discharge pending stable rate control regimen. Clinical condition guarded, prognosis fair.
[2019-08-20 16:18] LABS: Anion Gap 14.5 mEq/L (5-15); Basophils % 0.2 % (0.1-2.0); Calcium 8.9 mg/dL (8.5-10.1); Eosinophils # 0.4 K/mm3 (0.0-0.4); Eosinophils % 2.4 % (0.1-12.0); Hematocrit 34.6 % (37.0-47.0); Hemoglobin 10.5 g/dL (12.2-16.2); Lymphocytes # 0.8 K/mm3 (0.7-4.5); Lymphocytes % 5.5 % (10-50); Mean Corpuscular HGB Conc 30.4 g/dL (31.8-35.4); Mean Corpuscular Volume 93.8 fl (81-99); Mean Platelet Volume 7.9 fl (7.4-10.4); Monocytes # 0.3 K/mm3 (0.1-1.0); Monocytes % 2.3 % (1.7-9.3); Neutrophils % 89.6 % (37.0-80.0); Platelet Count 496 K/mm3 (142-424); Red Blood Count 3.68 M/mm3 (4.20-5.40); White Blood Count 14.5 K/mm3 (4.8-10.8)
[2019-08-20 17:27] LABS: Lymphocytes % 10 % (10-50); Monocytes % 3 % (2-9); Neutrophils % 87 % (42-76); Total Cells Counted 100
[2019-08-20 17:28] LABS: RBC Morphology Normal
--- NOTE | 2019-08-21 07:31 | Progress Note ---
Subjective Date: 08/21/19 Time: 07:27 Principal diagnosis: A. fib with RVR Interval history: 78-year-old white female in bed in no acute distress. Denies any chest pain, pressure tightness this morning. Events of yesterday noted including marked bradycardia and hypotension which improved with atropine and dopamine drip. Patient is now off dopamine drip with heart rates above 100 bpm and blood pressure stable. Resumption of home medications to begin today. Exam Vital signs and Labs for Last 24 Hours: Temp Pulse Resp BP Pulse Ox 99.2 F 96 H 18 116/56 L 99 08/21/19 03:56 08/21/19 06:55 08/21/19 03:56 08/21/19 06:55 08/21/19 06:55 Laboratory Results - last 24 hr 08/20/19 16:00: WBC 14.5 H, RBC 3.68 L, Hgb 10.5 L, Hct 34.6 L, MCV 93.8, MCH 28.6, MCHC 30.4 L, RDW 14.0, Plt Count 496 H, MPV 7.9, Neut % (Auto) 89.6 H, Lymph % (Auto) 5.5 L, [place] % (Auto) 2.3, Eos % (Auto) 2.4, Baso % (Auto) 0.2, Neut # (Auto) 13.0 H, Lymph # (Auto) 0.8, [place] # (Auto) 0.3, Eos # (Auto) 0.4, Baso # (Auto) 0.0, Total Counted 100, Neutrophils % (Manual) 87 H, Lymphocytes % (Manual) 10, Monocytes % (Manual) 3, Platelet Estimate Normal, RBC Morphology Normal 08/20/19 16:00: Sodium 138, Potassium 6.5 H* D, Chloride 104, Carbon Dioxide 26, Anion Gap 14.5, BUN 19 H D, Creatinine 1.41 H D, Estimated Creat Clear 27, Estimated GFR 36 L, Est GFR ( Amer) 43 L D, Glucose 159 H, Calcium 8.9, Magnesium 1.9 D 08/20/19 17:03: Potassium 6.2 H* I & O for Last 24 hours: Intake & Output 08/18/19 08/19/19 08/20/19 08/21/19 11:59 11:59 11:59 11:59 Intake Total 1115 / 1115 1588 / 1588 720 / 720 935 / 935 Output Total 550 / 550 300 / 300 360 / 360 700 / 700 Balance 565 / 565 1288 / 1288 360 / 360 235 / 235 Weight 112 lb 5 oz 116 lb 9 oz 116 lb 9 oz - *Routine Respiratory Exam Present: CTA bilaterally. Absent: accessory muscle use, rales, rhonchi, wheezes - *Routine Cardiovascular Exam Present: tachycardia, irregularly irregular. Absent: murmur, gallop, rubs - *Routine Extremities Exam Absent: edema, calf tenderness - *Routine Neurological Exam Present: alert, oriented X3, moving all extremities Progress Note: A&P (1) Atrial fibrillation with RVR Status: Chronic Current Visit: No (2) CAD (coronary artery disease) Status: Chronic Current Visit: No (3) Current use of fci anticoagulation Status: Chronic Current Visit: No (4) HLD (hyperlipidemia) Status: Chronic Current Visit: No (5) HTN (hypertension) Status: Chronic Current Visit: No (6) Oxygen dependent Status: Chronic Current Visit: Yes (7) COPD (chronic obstructive pulmonary disease) Status: Chronic Current Visit: Yes (8) Hypokalemia Status: Resolved Current Visit: Yes (9) Hypomagnesemia Status: Resolved Current Visit: Yes Assessment and Plan for All Diagnoses:: 1. Hyperkalemia, potassium supplement discontinued yesterday with BMP today pending 2. Atrial fibrillation with rapid ventricular response, marked bradycardia on increased doses of home medicines, improved with discontinuation of higher doses with resumption of home medications to begin today. Consider Holter or event monitor upon discharge. 3. Chronic anticoagulation with Eliquis 4. Mild anemia 5. CAD, clinically stable.
--- NOTE | 2019-08-21 07:53 | Progress Note ---
Internal Medicine - PN: Subj *Date: 08/21/19 *Time: 17:47 Interval history: Ms. Patterson was escalated ICU care yesterday evening due to bradycardia that was symptomatic. Suspect patient was over blocked with dual calcium channel estevan and beta-estevan. Has previously been well controlled at home. Medications held and given a dose of atropine overnight. Patient's heart rate improved today and back in A. fib with heart rate 90-120. Eating breakfast on exam this morning. Denies any chest pain, shortness of breath, nausea, vomiting. Nausea overnight has resolved. Exam Vital signs and Labs for Last 24 Hours: Temp Pulse Resp BP Pulse Ox 99.2 F 96 H 18 116/56 L 99 08/21/19 03:56 08/21/19 06:55 08/21/19 03:56 08/21/19 06:55 08/21/19 06:55 Laboratory Results - last 24 hr 08/20/19 16:00: WBC 14.5 H, RBC 3.68 L, Hgb 10.5 L, Hct 34.6 L, MCV 93.8, MCH 28.6, MCHC 30.4 L, RDW 14.0, Plt Count 496 H, MPV 7.9, Neut % (Auto) 89.6 H, Lymph % (Auto) 5.5 L, [place] % (Auto) 2.3, Eos % (Auto) 2.4, Baso % (Auto) 0.2, Neut # (Auto) 13.0 H, Lymph # (Auto) 0.8, [place] # (Auto) 0.3, Eos # (Auto) 0.4, Baso # (Auto) 0.0, Total Counted 100, Neutrophils % (Manual) 87 H, Lymphocytes % (Manual) 10, Monocytes % (Manual) 3, Platelet Estimate Normal, RBC Morphology Normal 08/20/19 16:00: Sodium 138, Potassium 6.5 H* D, Chloride 104, Carbon Dioxide 26, Anion Gap 14.5, BUN 19 H D, Creatinine 1.41 H D, Estimated Creat Clear 27, Estimated GFR 36 L, Est GFR ( Amer) 43 L D, Glucose 159 H, Calcium 8.9, Magnesium 1.9 D 08/20/19 17:03: Potassium 6.2 H* I & O for Last 24 hours: Intake & Output 08/18/19 08/19/19 08/20/19 08/21/19 23:59 23:59 23:59 23:59 Intake Total 1578 / 1578 1365 / 1365 297 / 297 878 / 878 Output Total 450 / 450 360 / 360 400 / 400 300 / 300 Balance 1128 / 1128 1005 / 1005 -103 / -103 578 / 578 Weight 53.581 kg 52.872 kg 52.872 kg Narrative: Patient in A. fib on exam. Heart rate 90s to 110s. Lungs have good air movement bilaterally, No crackles or rhonchi. Abdomen soft, nontender Trace ankle edema. Neurologic exam intact. Oropharynx clear and moist. No JVD. Assessment and Plan (1) Atrial fibrillation with RVR Current visit: No Status: Chronic Category: Medical Code(s): I48.91 - Unspecified atrial fibrillation (2) CAD (coronary artery disease) Current visit: No Status: Chronic Qualifiers: Coronary Disease-Associated Artery/Lesion type: [place] artery [place] vs. transplanted heart: [place] heart Associated angina: without angina Qualified Code(s): I25.10 - Atherosclerotic heart disease of [place] coronary artery without angina pectoris Category: Medical Code(s): I25.10 - Atherosclerotic heart disease of [place] coronary artery without angina pectoris (3) Current use of care home anticoagulation Current visit: No Status: Chronic Category: Medical Code(s): Z79.01 - intermission coordinator (current) use of anticoagulants (4) HLD (hyperlipidemia) Current visit: No Status: Chronic Qualifiers: Hyperlipidemia type: other hyperlipidemia Qualified Code(s): E78.49 - Other hyperlipidemia; E78.4 - Other hyperlipidemia Category: Medical Code(s): E78.5 - Hyperlipidemia, unspecified (5) HTN (hypertension) Current visit: No Status: Chronic Qualifiers: Hypertension type: essential hypertension Qualified Code(s): I10 - Essential (primary) hypertension Category: Medical Code(s): I10 - Essential (primary) hypertension (6) Oxygen dependent Current visit: Yes Status: Chronic Category: Medical Code(s): Z99.81 - Dependence on supplemental oxygen (7) COPD (chronic obstructive pulmonary disease) Current visit: Yes Status: Chronic Category: Medical Code(s): J44.9 - Chronic obstructive pulmonary disease, unspecified (8) Hypokalemia Current visit: Yes Status: Resolved Category: Medical Code(s): E87.6 - Hypokalemia (9) Hypomagnesemia Current visit: Yes Status: Resolved Category: Medical Code(s): E83.42 - Hypomagnesemia - Assessment and plan all Dx Assessment and Plan for all problems:: Heart rate back in the 100 range showing uncontrolled A. fib. Back on home regimen of medication today. Will titrate slowly to a slightly higher dose of beta-estevan and continue home diltiazem dosage. Patient clinically feeling better today. If heart rate better controlled the morning, will meet criteria for discharge home. Able to tolerate p.o. intake. Recommend patient pursue colonoscopy and work-up for her abdominal mass at under the care of GI surgery where cardiology can be consulted as an inpatient and prep can be for performed as an inpatient. Feel the complexity of patient's current clinical status warrants further work-up at a tertiary care center.
[2019-08-21 09:50] LABS: Basophils % 0.4 % (0.1-2.0); Eosinophils # 0.3 K/mm3 (0.0-0.4); Eosinophils % 2.5 % (0.1-12.0); Hematocrit 33.5 % (37.0-47.0); Lymphocytes # 1.1 K/mm3 (0.7-4.5); Lymphocytes % 10.6 % (10-50); Mean Corpuscular HGB Conc 29.8 g/dL (31.8-35.4); Mean Platelet Volume 7.6 fl (7.4-10.4); Monocytes # 0.6 K/mm3 (0.1-1.0); Monocytes % 5.1 % (1.7-9.3); Neutrophils # 8.7 K/mm3 (1.8-7.8); Neutrophils % 81.4 % (37.0-80.0); Platelet Count 400 K/mm3 (142-424); Red Blood Count 3.56 M/mm3 (4.20-5.40); White Blood Count 10.7 K/mm3 (4.8-10.8)
[2019-08-21 10:00] LABS: Albumin Level 2.7 gm/dL (3.4-5.0); Albumin/Globulin Ratio 0.7 (1.1-1.8); Anion Gap 15.2 mEq/L (5-15); Bilirubin,Total 0.3 mg/dL (0.2-1.0); Calcium 8.6 mg/dL (8.5-10.1); Total Protein,Serum 6.7 gm/dL (6.4-8.2)
--- NOTE | 2019-08-21 16:36 | Electrocardiograph Report ---
APPROVED REPORT Exam: Resting ECG HR:45 bpm ECG Measurements Heart Rate 45 AXES QRSd 120 QRS -74 QT 442 T4 QTc 382 <Conclusion> Atrial fibrillation with slow ventricular response with premature ventricular or aberrantly conducted complexes Left axis deviation Right bundle branch block Abnormal ECG Electronically signed by : Aleksey Collins, 08/21/2019 16:36:00
--- NOTE | 2019-08-21 16:44 | Electrocardiograph Report ---
APPROVED REPORT Exam: Resting ECG HR:153 bpm ECG Measurements Heart Rate 153 AXES QRSd 82 QRS -61 QT 304 T15 QTc 485 <Conclusion> Atrial fibrillation with rapid ventricular response with premature ventricular or aberrantly conducted complexes Left axis deviation Nonspecific ST abnormality, probably digitalis effect Abnormal ECG Electronically signed by : Aleksey Collins, 08/21/2019 16:43:59
[2019-08-22 06:13] LABS: Anion Gap 14.3 mEq/L (5-15); Calcium 8.2 mg/dL (8.5-10.1)
[2019-08-22 06:51] LABS: Basophils % 0.5 % (0.1-2.0); Eosinophils # 0.2 K/mm3 (0.0-0.4); Hematocrit 30.8 % (37.0-47.0); Hemoglobin 9.5 g/dL (12.2-16.2); Lymphocytes # 1.2 K/mm3 (0.7-4.5); Lymphocytes % 13.3 % (10-50); Mean Corpuscular HGB Conc 30.7 g/dL (31.8-35.4); Mean Corpuscular Volume 92.4 fl (81-99); Mean Platelet Volume 9.1 fl (7.4-10.4); Monocytes # 0.6 K/mm3 (0.1-1.0); Monocytes % 7.3 % (1.7-9.3); Neutrophils # 6.7 K/mm3 (1.8-7.8); Platelet Count 422 K/mm3 (142-424); Red Blood Count 3.33 M/mm3 (4.20-5.40); Red Cell Distribution Width 13.8 % (11.5-17.5); White Blood Count 8.7 K/mm3 (4.8-10.8)
== END 2019-08-22 13:13 | disposition home or self-care (01) | DRG 310 ==
LOC: OUTP 10:57 → ICU 10:57 → 2ND 08-18 17:43 → ICU 08-20 13:40
PROVIDERS: ADMIT Internal Medicine Adolescent Medicine; ATTEND Internal Medicine Adolescent Medicine
CPT/HCPCS: 36415; 80048; 80053; 83735; 84132; 85007; 85025; 93005; 94761; G0378

== ENCOUNTER → 2019-09-01 13:11 | Outpatient (CLI) | payer MEDICARE, MEDICAID, SELFPAY ==
--- NOTE | 2019-09-01 13:16 | US_ITS ---
PROCEDURE: US PELVIC CLINICAL INDICATION: LT ADNEXAL MASS W PAST H/O COLON CA COMPARISON: CT ABDOMEN PELVIS W CON from 07/06/2019 FINDINGS: The uterus is 4 x 2.3 x 3.9 cm with a combined endometrial thickness of 8 mm. There is a complex appearing left adnexal mass at 7 x 5 cm corresponding to the CT abnormality. This shows some increased echogenicity with some posterior acoustical shadowing. This may be related to necrotic mass or an abscess. Recommend follow-up with CT abdomen and pelvis with both IV and oral contrast with delayed imaging from the oral contrast to assure contrast reaches the colon. Cannot differentiate an ovarian mass from a sigmoid mass or even an abscess based on these images. IMPRESSION: 7 x 5 cm left lower quadrant mass as described above. Recommend follow-up with CT with IV and oral contrast with delayed imaging. Dictated by: Brady Galvez MD 09/01/2019 16:21 Electronically signed by Brady Galvez MD in [facility] 09/01/2019 16:21
== END ==
PROVIDERS: PCP Internal Medicine Adolescent Medicine; Visit Provider Surgery
DX: R19.04 Left lower quadrant abdominal swelling, mass and lump (principal); Z85.038 Personal history of other malignant neoplasm of large intestine
CPT/HCPCS: 76856

== ENCOUNTER → 2020-04-12 15:34 | Outpatient (CLI) | payer OTHER, SELFPAY | PROVIDERS: Visit Provider Internal Medicine | DX: J44.9 Chronic obstructive pulmonary disease, unspecified (principal) | CPT/HCPCS: 87070; 87077; 87186; 87205 ==

== ENCOUNTER 2020-04-14 15:33 | Inpatient (IN) | payer OTHER, MEDICARE, MEDICAID, SELFPAY ==
[2020-04-14] VITALS (9 sets, daily range): BP systolic 109–123; BP diastolic 81–84; PULSE 75–120; RESP 19–24; TEMP 36.7–36.8; O2SAT 96–99; BMI 19.8; BMI 22.1
--- NOTE | 2020-04-14 15:56 | XR_ITS ---
PROCEDURE: XR CHEST 2V CLINICAL HISTORY: cough Cough and shortness of breath. History of COPD got worse in last few days. COMPARISON: CXR2V XR chest 2V from 10/10/2018 CT CHEST W CON from 07/06/2019 CT ABDOMEN PELVIS W CON from 09/15/2019 XR CHEST PORTABLE from 09/15/2019 XR CHEST PORTABLE from 09/15/2019 FINDINGS: Patient is rotated. No acute bony abnormalities. Metallic surgical clips are again seen in the right suprahilar region from previous lung surgery/resection and with decreased right lung volume. The lungs are hyperinflated, consistent with COPD. Lung aranda appear similar to the previous study. Minimal fibrotic atelectatic changes again seen at the right base with associated pleural thickening and with loss of right costophrenic sulcus. There is a stable mild/moderate cardiomegaly. Mildly prominent peripheral pulmonary vascular markings. There is atherosclerotic calcification of the aortic arch. An inhaler artifact is seen over the left lower chest. A moderate size hiatal hernia is seen. Diffuse bony demineralization. Increased thoracic kyphosis. IMPRESSION: 1. Redemonstrated chronic changes of the chest, but no acute findings. 2. Stable cardiomegaly. Hiatal hernia. Dictated by: Patsy Ritter 04/14/2020 16:35 Electronically signed by Patsy Ritter in [facility] 04/14/2020 16:35
--- NOTE | 2020-04-14 16:09 | ECG_ITS ---
APPROVED REPORT Exam: Resting ECG HR:127 bpm ECG Measurements Heart Rate 127 AXES QRSd 96 QRS -48 QT 310 T 95 QTc 450 <Conclusion> Atrial fibrillation with rapid ventricular response Left axis deviation Nonspecific T wave abnormality, probably digitalis effect Abnormal ECG Electronically signed by : Aleksey Collins, 04/17/2020 21:18:22
--- NOTE | 2020-04-14 16:20 | PC.NURSE ---
PT WITH RAD AT THIS TIME
--- NOTE | 2020-04-14 16:23 | PC.NURSE ---
SPEAKING TO AT THIS TIME
--- NOTE | 2020-04-14 16:28 | PC.NURSE ---
PT BACK FROM RAD
--- NOTE | 2020-04-14 16:54 | HMH.EDGENADL ---
ED Disposition Clinical Impression: Pneumonia due to Enterobacter cloacae, Oxygen dependent Congestive heart failure Qualifiers: Heart failure type: unspecified Heart failure chronicity: acute on chronic Qualified Code(s): I50.9 - Heart failure, unspecified COPD (chronic obstructive pulmonary disease) Qualifiers: COPD type: unspecified COPD Qualified Code(s): J44.9 - Chronic obstructive pulmonary disease, unspecified Disposition: Admitted as Observation Condition on Discharge: Fair Referrals: Aleksey Collins MD [Primary Care Provider] - Time of Disposition: 18:13 - Critical Care Critical Care Time: No Attestation: On 04/14/20, the high probability of a clinically significant, sudden or life threatening deterioration of the following system(s) required my full and direct attention, intervention and personal management. The time I documented below is in addition to time spent performing reported procedures but includes the following listed in this critical care notation. Medical Decision Making - Medical Records Medical records reviewed: Yes: I reviewed the patient's medical records. - [place] Inquiry Pt receiving controlled substance: No Vital Signs: 04/14/20 15:42 04/14/20 16:30 04/14/20 18:00 Temperature 98.1 F Temperature Source Oral Pulse Rate [Radial] 75 115 H 120 H Respiratory Rate 19 22 22 Blood Pressure [Right Arm] 109/82 L 123/83 113/83 Blood Pressure Mean [Right Arm] 91 96 93 Blood Pressure Source [Right Arm] Automatic Cuff Automatic Cuff Automatic Cuff Blood Pressure Position [Right Arm] Sitting Supine Supine 02 Sat by Pulse Oximetry 99 99 96 Oxygen Delivery Method Room Air Nasal Cannula Nasal Cannula - Lab Data Lab Results 04/14/20 15:55: VBG pH 7.29 L, VBG pCO2 39.0, VBG pO2 50.5 H, VBG HCO3 18.2 L, VBG Total CO2 19.4 L, VBG O2 Saturation 80.6 H, VBG Base Excess -8.4 L 04/14/20 17:05: WBC 14.7 H, RBC 4.07 L, Hgb 14.2, Hct 39.2, MCV 96.4, MCH 35.0 H, MCHC 36.3 H, RDW 15.7, Plt Count 294, MPV 8.1, Neut % (Auto) 90.0 H, Lymph % (Auto) 5.3 L, [place] % (Auto) 3.8, Eos % (Auto) 0.5, Baso % (Auto) 0.4, Neut # (Auto) 13.3 H, Lymph # (Auto) 0.8, [place] # (Auto) 0.6, Eos # (Auto) 0.1, Baso # (Auto) 0.1, Total Counted 100, Neutrophils % (Manual) 86 H, Lymphocytes % (Manual) 8 L, Monocytes % (Manual) 3, Metamyelocytes % 3.0 H, Nucleated RBCs 1, Platelet Estimate Normal, RBC Morphology Normal 04/14/20 17:05: Sodium 137, Potassium 5.6 H, Chloride 98, Carbon Dioxide 21 L, Anion Gap 23.6 H, BUN 88 H, Creatinine 2.60 H, Estimated Creat Clear 14, Estimated GFR 18 L*, Est GFR ( Amer) 21 L, Glucose 167 H, Calcium 9.9, Total Bilirubin 0.7, AST 42 H, ALT 46, Alkaline Phosphatase 72, NT-Pro-B Natriuret Pep 79739 H, Total Protein 7.9, Albumin 4.7, Globulin 3.2, Albumin/Globulin Ratio 1.5, Lipase 281 Result diagrams: 04/14/20 17:05 04/14/20 17:05 Orders (Tests/Meds): ED MEDICATIONS Generic Name Dose Route Start Last Admin Trade Name Freq PRN Reason Stop Dose Admin Levofloxacin 750 mg 04/14/20 16:30 04/14/20 16:50 Levaquin 750mg Tablet PO 04/28/20 16:29 750 mg DAILY MARY Administration Protocol Discontinued Medications Generic Name Dose Route Start Last Admin Trade Name Freq PRN Reason Stop Dose Admin Levofloxacin 750 mg 04/14/20 16:09 04/14/20 16:37 Levaquin 750mg Tablet PO 04/28/20 16:10 Not Given BID MARY Protocol ORDERS Category Date Time Status EKG Request [ECG Request by /Andreas] Stat Y 04/14/20 15:56 Ordered Medical Decision Narrative: In summary this is an 79-year-old female with history of advanced COPD and colon cancer presenting to the emergency department with cough, lower extremity swelling, weakness. Patient is elderly and frail. She is tachycardic, consistent with atrial fibrillation. Other vital signs are stable. Differential diagnoses include pneumonia, heart failure, COPD exacerbation. Plan to obtain CBC, CMP, lactate, BNP, chest x
[2020-04-14 17:13] LABS: Basophils # 0.1 K/mm3 (0-0.2); Basophils % 0.4 % (0.1-2.0); Eosinophils # 0.1 K/mm3 (0.0-0.4); Eosinophils % 0.5 % (0.1-12.0); Hematocrit 39.2 % (37.0-47.0); Hemoglobin 14.2 g/dL (12.2-16.2); Lymphocytes # 0.8 K/mm3 (0.7-4.5); Lymphocytes % 5.3 % (10-50); Mean Corpuscular HGB Conc 36.3 g/dL (31.8-35.4); Mean Corpuscular Volume 96.4 fl (81-99); Mean Platelet Volume 8.1 fl (7.4-10.4); Monocytes # 0.6 K/mm3 (0.1-1.0); Monocytes % 3.8 % (1.7-9.3); Neutrophils # 13.3 K/mm3 (1.8-7.8); Platelet Count 294 K/mm3 (142-424); Red Blood Count 4.07 M/mm3 (4.20-5.40); Red Cell Distribution Width 15.7 % (11.5-17.5); White Blood Count 14.7 K/mm3 (4.8-10.8)
[2020-04-14 17:17] LABS: Chloride 98 mmol/L (98-107); Potassium 5.6 mmoL/L (3.5-5.1); Sodium 137 mmol/L (136-145)
[2020-04-14 17:20] LABS: Alanine Aminotransferase 46 U/L (12-78); Albumin Level 4.7 g/dl (3.5-5.0); Albumin/Globulin Ratio 1.5 (1.1-1.8); Alkaline Phosphatase 72 U/L (38-126); Anion Gap 23.6 mEq/L (5-15); Aspartate Amino Transferase 42 U/L (14-36); Bilirubin,Total 0.7 mg/dl (0.2-1.3); Calcium 9.9 mg/dl (8.4-10.2); Carbon Dioxide 21 mmol/L (22.0-30.0); Creatinine Clearance Estimated 14 mL/min (50-200); Estimated Glomerular Filt Rate 18 ml/min (>60); GFR (African American) 21 ML/MIN (>60); Globulin 3.2 g/dL (1.3-3.2); Glucose 167 mg/dl (74-100); Lipase 281 U/L (23-300); Total Protein,Serum 7.9 g/dl (6.3-8.2)
[2020-04-14 17:30] LABS: Blood Urea Nitrogen 88 mg/dl (7-17); MANUAL DIFFERENTIAL MANUAL DIFFERENTIAL (MANUAL DIFF); NT Pro Brain Natriuretic Pep. 29100 pg/mL (0-450)
[2020-04-14 17:33] LABS: VBG Base Excess -8.4 mmol/L (-2.4-2.3); VBG HCO3 18.2 mmol/L (23-30); VBG Oxygen Saturation 80.6 % (50-70); VBG PH 7.29 mmol/L (7.31-7.41); VBG PO2 50.5 mmol/L (28-40); VBG Total CO2 19.4 mmol/L (23-27)
[2020-04-14 17:45] LABS: Lymphocytes % 8 % (10-50); Monocytes % 3 % (2-9); Neutrophils % 86 % (42-76); Nucleated Red Blood Cells 1; Platelet Estimate Normal; RBC Morphology Normal; Total Cells Counted 100
--- NOTE | 2020-04-14 18:06 | PC.NURSE ---
PAGING AT THIS TIME
--- NOTE | 2020-04-14 18:51 | PC.NURSE ---
Attempted to call report to Med Surg with no answer, will try again.
--- NOTE | 2020-04-14 19:00 | PC.NURSE ---
Report given to MADY Ayala.
--- NOTE | 2020-04-14 19:00 | PC.NURSE ---
Received report from Cristiana Lucas RN
--- NOTE | 2020-04-14 19:22 | PC.NURSE ---
Report given to Roverto Garner RN. Pt not yet to floor, d/t room not being clean
--- NOTE | 2020-04-14 20:08 | PC.NURSE ---
up to floor via wheelchair.
[2020-04-14 22:00] LABS: Lactic Acid 2.2 mmol/L (0.7-2.1)
[2020-04-14 23:11] LABS: Microscopic,Cath URINE MICROSCOPIC (MICROSCOPIC)
[2020-04-14 23:17] LABS: Appearance,Urine/Cath CLEAR (Clear); Bilirubin,Cath Negative (Negative); Blood, Urine/Cath Negative (Negative); Color,Urine/Cath YELLOW (Yellow); Glucose,Urine/Cath (UA) Negative (Negative); Ketones,Urine/Cath Negative (Negative); Leukocyte Esterase,Cath Negative (Negative); Nitrate,Cath Negative (Negative); PH,Urine/Cath 5.5 (5.0-8.5); Protein,Urine/Cath Negative (Negative); Specific Gravity, Urine/Cath 1.015 (1.005-1.030); Urobilinogen,Cath 0.2 EU/dl (0.2)
--- NOTE | 2020-04-14 23:18 | PC.NURSE ---
Pt's room air sat = 88% at rest.
[2020-04-14 23:20] LABS: Bacteria,Urine/Cath TRACE /lpf; Hyaline Casts,Urine/Cath OCC #/lpf (0); Squamous Epithelial Ur./Cath Occasional #/hpf (0-5); WBC,Urine/Cath Occasional #/hpf (0-3)
[2020-04-15] VITALS: BP 112/66; PULSE 100; PULSE 70; RESP 27; TEMP 36.4; O2SAT 96
[2020-04-15 01:25] LABS: Reflex Lactic Add Lactic Reflex
[2020-04-15 02:03] LABS: Lactic Acid Follow Up (RFLX 1) 4.9 mmol/L (0.7-2.1)
--- NOTE | 2020-04-15 02:30 | PC.NURSE ---
Attempting to contact PCP. Awaiting call back.
[2020-04-15 03:49] LABS: Reflex Lactic (2 hrs) Add Lactic Reflex
[2020-04-15 04:00] VITALS: BP 92/42; PULSE 100; PULSE 55; RESP 26; TEMP 36.6; O2SAT 95
[2020-04-15 04:25] LABS: Basophils # 0.2 K/mm3 (0-0.2); Basophils % 1.3 % (0.1-2.0); Eosinophils # 0.1 K/mm3 (0.0-0.4); Eosinophils % 0.6 % (0.1-12.0); Hematocrit 44.3 % (37.0-47.0); Hemoglobin 14.6 g/dL (12.2-16.2); Lymphocytes # 1.8 K/mm3 (0.7-4.5); Lymphocytes % 12.6 % (10-50); Mean Corpuscular Hemoglobin 34.2 pg (27.0-31.2); Mean Corpuscular Volume 103.8 fl (81-99); Mean Platelet Volume 8.1 fl (7.4-10.4); Monocytes # 0.5 K/mm3 (0.1-1.0); Monocytes % 3.3 % (1.7-9.3); Neutrophils # 11.8 K/mm3 (1.8-7.8); Neutrophils % 82.2 % (37.0-80.0); Platelet Count 239 K/mm3 (142-424); Red Blood Count 4.26 M/mm3 (4.20-5.40); Red Cell Distribution Width 15.3 % (11.5-17.5); White Blood Count 14.3 K/mm3 (4.8-10.8)
[2020-04-15 04:39] LABS: Chloride 96 mmol/L (98-107)
[2020-04-15 04:40] LABS: Sodium 133 mmol/L (136-145)
[2020-04-15 04:42] LABS: Alanine Aminotransferase 389 U/L (12-78); Alkaline Phosphatase 61 U/L (38-126); Anion Gap 31.1 mEq/L (5-15); Aspartate Amino Transferase 396 U/L (14-36); Bilirubin,Total 1.4 mg/dl (0.2-1.3); Carbon Dioxide 13 mmol/L (22.0-30.0)
[2020-04-15 04:43] LABS: Albumin Level 4.2 g/dl (3.5-5.0); Albumin/Globulin Ratio 1.6 (1.1-1.8); Calcium 9.1 mg/dl (8.4-10.2); Globulin 2.7 g/dL (1.3-3.2); Glucose 163 mg/dl (74-100); Magnesium 2.3 mg/dl (1.6-2.3); Total Protein,Serum 6.9 g/dl (6.3-8.2)
[2020-04-15 04:46] LABS: Lactic Acid Follow up (RFLX 2) 6.3 mmol/L (0.7-2.1)
--- NOTE | 2020-04-15 04:46 | PC.NURSE ---
A&O4. PT HAS TOLERATED 3L NC WELL THROUGHOUT SHIFT. EXPIRATORY RHONCHI NOTED THROUGHOUT LUNGS. INTERMITTENT PRODUCTIVE COUGH NOTED. SOFT NONTENDER DISTENDED ABDOMEN NOTED. ACTIVE BOWEL SOUNDS HEARD IN ALL 4 QUADRANTS. +2 PITTING EDEMA NOTED TO BLE WITH PURPLISH DISCOLORATION. +2 PULSES NOTED THROUGHOUT. DOPPLER USED ON L FOOT TO AUSCULTATE PULSE. HAND GRAIN COMBINE DRIVER EQUAL. PT HAS HAD REPORTS OF ABDOMINAL PAIN, NAUSEA, AND SHORTNESS OF BREATH. PT HAS RECEIVED ZOFRAN 4MG IV AND DUO NEB PER NOV NEEDED. FEET HAVE BEEN ELEVATED THROUGHOUT SHIFT. PT HAS REMAINED IN CONTACT PRECAUTIONS THROUGHOUT SHIFT. BALDERRAMA CATH IN PLACE WITH BRIGHT YELLOW URINE NOTED. NO KINKS NOTED. COLOSTOMY IN PLACE W FORMED SOFT BROWN STOOL NOTED. BEEFY RED STOMA NOTED. G TUBE IN PLACE. PT CURRENTLY SITTING IN HER CHAIR. CALL LIGHT WITHIN REACH. VSS. WILL CONTINUE TO MONITOR.
[2020-04-15 04:47] LABS: Blood Urea Nitrogen 96 mg/dl (7-17); Potassium 7.1 mmoL/L (3.5-5.1)
[2020-04-15 05:00] LABS: Creatinine Clearance Estimated 13 mL/min (50-200); Estimated Glomerular Filt Rate 16 ml/min (>60); GFR (African American) 19 ML/MIN (>60)
[2020-04-15 05:40] VITALS: PULSE 20; RESP 8
--- NOTE | 2020-04-15 05:42 | PC.NURSE ---
0537 Itz Chaidez ,son ,notified of change in pts condition
--- NOTE | 2020-04-15 05:50 | PC.NURSE ---
Addendum entered by Pura Abbott RN 04/15/20 09:14: DURING UNRESPONSIVE EPISODE, 100% NONREBREATHER WAS PLACED ON PT. UNABLE TO OBTAIN BP AND O2 SAT AT THIS TIME. RR OF 8 TIMES A MINUTE. Original Note: PT'S MORNING LABS CAME BACK WITH SEVERAL CRITICALS. LACTIC 6.3, POTASSIUM 7.1, BUN 96, CREATININE 2.9, AST 396, ALT 389. URINE OUTPUT OF 100ML THUS FAR THIS SHIFT SINCE RECEIVING BUMEX. PT REPORTED ABDOMEN CRAMPING, NAUSEA AND SOB. FLUID BOLUS OF 500ML/HR WAS STARTED ON PT. PT RECEIVED 1 GRAM CALCIUM GLUCONATE AND 1 AMP50 W 10 UNITS OF INSULIN AT 0540. PT WAS UP TO THE CHAIR WHEN SHE BECAME VERY LETHARGIC AND MUMBLING WORDS. SHE COULDN'T GET OUT WHAT SHE WANTED TO SAY. TRIED TO OBTAIN EKG WHEN STAFF NOTED A FIB THAT LED INTO ASYTOLE. PT BECAME UNRESPONSIVE. AGONAL BREATHING NOTED. NO PULSE WAS PALPATED. DOPPLER CAROTID PULSE OBTAINED NOTED BRADYCARDIAC OF 20. PT BECAME APNEIC. ATTEMPTED TO OBTAIN PULSE PER PALPATION AND DOPPLER. NO PULSES DETECTED. MADE AWARE. FAMILY NOTIFIED OF PT'S CONDITION CHANGE. DR ROOT PRONOUNCED PT AT 0550.
--- NOTE | 2020-04-15 06:45 | PC.NURSE ---
Notified Hospice of patient expiring.
--- NOTE | 2020-04-15 06:47 | PC.NURSE ---
Notified [employer] of [employer]'s case. Stated he would be up soon to see the patient.
--- NOTE | 2020-04-15 07:12 | HMH.HP ---
*Admission Date: 04/14/20 *Chief complaint: Shortness of breath, cough *History of present illness: Ms. Patterson is an 79-year-old female with history of multiple different cancers including most recently recurrent colon cancer, end-stage COPD, CHF, A. fib with RVR, and recent admission to home hospice. She was brought to the ER at the request of family due to fatigue and worsening shortness of breath. On arrival she was noted to have normal vitals and slight oxygen requirement higher than her baseline. She complained of cough, lower extremity swelling, weakness. During assessment the ER developed some tachycardia there was an irregular rhythm (well-established history of A. fib) but remained normotensive. Labs were obtained showing elevated white count, cute kidney injury, electrolyte disturbances, and severely elevated BNP of 29,000. X-ray on arrival to the ER significant for pulmonary congestion and blunting of costophrenic angles. Initiated on antibiotics as she had a sputum obtained earlier in the week that was positive for E. cloacae that was CRE. Given her weakness, lab abnormalities, and family's discomfort with caring for her at home and her worsening condition, decision was made to admit for further management of her multiple organ dysfunction and COPD exacerbation versus pneumonia. Presentation shows complex competing diagnoses that have very different paths of treatment. In light of her multiorgan dysfunction/failure, her condition is quite tenuous. Additionally with her history of CHF and COPD she has no reserve. [facility] History I have reviewed the patient's past medical history: Yes (Per chart) Medical History: Reports:: Atrial Fibrillation, Cancer (colon, lung), Congestive Heart Failure, Chronic Obstructive Pulmonary Disease (COPD), Coronary Artery Disease, Gastroesophageal Reflux Disease(GERD), Heart Murmur, Hyperlipidemia, Hypertension, Lung Disease Denies:: Diabetes Mellitus Type 1, Diabetes Mellitus Type 2, Internal Pacemaker, MRSA, Seizures *Have you ever received a pneumonia vaccine?: Yes *Have you received a flu vaccine this season?: Yes Other Medical History: Reports: Arthritis, Cataracts, Hypothyroidism Laterality Cases: Left: Mastectomy, Right: Other, Bilateral: Tonsillectomy Other Surgeries: Yes: Appendectomy, Cancer Surgery, Cardiac Catheterization, Colonoscopy, Colon Resection, Dilation and Curettage, EGD, Thyroidectomy. No: Pacemaker Amputation: Yes (LEFT MASTECTOMY) Fractures: No - *Social History Last grade of school completed: 9th or 10th Smoking Status: Former smoker Tobacco Type: cigarettes #Yrs smoked (if former smoker): 60 Alcohol Intake: never Alcohol Intake Frequency:: other Substance Use Type: denies use *Occupational Status:: disabled Housing: apartment Household Members: none *Travel in the last 8 weeks: None Family Hx:: Diabetes, Hypertension Review of Systems - Review of Systems Review of systems:: unable to obtain - *Neurologic Reports weakness, Denies localized weakness, Denies headache(s), Denies numbness Meds Home Medications Medication Instructions Recorded Confirmed Type Gabapentin [Gabapentin 300mg Cap] 600 mg PO HS 09/24/17 04/14/20 History Pilocarpine HCl 5 mg PO TID 09/24/17 04/14/20 History apixaban 2.5 mg tablet 2.5 mg PO BID #180 tab 06/19/19 04/14/20 Rx diltiazem HCl 120 mg 120 mg PO DAILY #90 cap 07/27/19 04/14/20 Rx capsule,extended release 24 hr Levothyroxine Sodium 88 mcg PO DAILY 08/18/19 04/14/20 History [Levothyroxine 88mcg (0.088mg) Tab] Umeclidinium Brm/Vilanterol Tr 1 puff IH DAILY 08/18/19 04/14/20 History [Anoro Ellipta 62.5-25 Mcg INH] Metoprolol Tartrate [Lopressor 37.5 mg PO BID 09/15/19 04/14/20 History 25mg tablet] Allergies Allergy/AdvReac Type Severity Reaction Status Date / Time aspirin [ASPIRIN] Allergy Unknown BLEEDING Verified 04/14/20 23:34 Penicillins Allergy Unknown FACIAL Verified 04/14/20 23:34 NUMBNESS Exam Irina
--- NOTE | 2020-04-15 07:29 | SW/DCPLANNER ---
PATIENT PRESENTED INTO THE ED LAST EVENING AND WAS BROUGHT UP ON THE FLOOR, FAMILY CURRENTLY AT BEDSIDE AND PATIENT HAS ... PATIENT WAS A [employer] PATIENT...
--- NOTE | 2020-04-15 07:30 | PC.NURSE ---
PT RECEIVED POST MORTEM CARE PER STAFF. BED BATH WITH BALDERRAMA AND IV DC. BED LINENS CHANGED. GOWN PROVIDED.
--- NOTE | 2020-04-15 07:52 | PC.NURSE ---
[facility] CONTACTED IN REGARDS TO RELEASING BODY TO HOME PER FAMILY'S REQUEST.
--- NOTE | 2020-04-15 07:56 | P.CONPHA_ITS ---
[facility] Pharmacy VTE Monitoring - Patient Demographics Admission date: 04/15/20 Report Date: 04/15/20 Time: 07:56 Allergies/Adverse Reactions: Patient Allergies aspirin [ASPIRIN] Allergy (Unknown, Verified 04/14/20 23:34) BLEEDING Penicillins Allergy (Unknown, Verified 04/14/20 23:34) FACIAL NUMBNESS Height: 1.55 m Weight: 53.297 kg Patient Problems: Current Active Problems COPD (chronic obstructive pulmonary disease) (Chronic) Oxygen dependent (Chronic) Pneumonia due to Enterobacter cloacae (Acute) Congestive heart failure (Acute) Acute kidney failure (Acute) Hyperkalemia (Acute) Sepsis (Acute) Multi-organ system dysfunction (Acute) Multiple malignancies (Acute) - VTE Risk Labs: VTE Related Lab Results Hgb 14.6 g/dL (12.2-16.2) 04/15/20 04:15 Hct 44.3 % (37.0-47.0) 04/15/20 04:15 Plt Count 239 K/mm3 (142-424) 04/15/20 04:15 BUN 96 mg/dl (7-17) H 04/15/20 04:15 Creatinine 2.90 mg/dl (0.52-1.04) H 04/15/20 04:15 Estimated Creat Clear 13 mL/min (50-200) 04/15/20 04:15 Was VTE Risk Assessment Performed: Yes VTE Score: 6 VTE Risk Level: Moderate Risk Clinical Trial Participant: No - Prophylaxis VTE Prophylaxis Ordered?: Yes Types of VTE Prophylaxis: TEDS Knee High Location of Applied Device: Not Applicable
--- NOTE | 2020-04-15 08:28 | HMH.DEADDC ---
Discharge Sum: Prov - Provider Primary care physician: Aleksey Collins MD Visit Care Team Role Provider Type Sabi DO [facility] Emergency Provider ER Physician Aleksey Collins MD Attending Provider Staff Physician Primary Care Provider Aleksey Hernandez MD Admit Provider Staff Physician Admitting clinician: Misha Jones Consults: 04/14/20 18:57 Consult to Case Management [CONS] Routine Reason For Consult: hospice patient Pronouncing clinician: Misha Jones Discharge Sum: Diag - PCOD Cause of : Cardiac arrest Discharge Sum: Summary - Date and Time Date of admission: 04/14/20 19:03 Date of : 04/15/20 Time of : 05:50 - Hospital Course prior to Hospital Course Information: 79-year-old female with history of multiple cancers, multiple organ dysfunction, presentation concerning for CHF exacerbation with cardiorenal syndrome versus sepsis. Initial assessment significant for patient literally being stuck between a rock and a hard place. Was initiated on antibiotics based on sputum culture with Levaquin 750?1 in the ER. Given kidney dysfunction on presentation, renally dosing antibiotics would constitute continuing 500 mg every other day. Further review of her labs, images, history and presentation led to the difficult decision to treat CHF exacerbation with diuresis based on BNP of 29,000, peripheral edema, pulmonary congestion, increased oxygen requirement, no focal consolidation on chest x-ray, and an adequate urine output in the setting of being normotensive. Patient had minimal response to diuretic but unfortunately developed worsening electrolyte disturbances. I was contacted early in the morning in regard to her worsening lactate, elevated potassium, and no improvement in clinical condition. Instructions given to initiate treatment for hyperkalemia at that time and IV fluids. Patient was uncomfortable in bed and so she has to move to a bedside chair. Shortly thereafter, she became unresponsive and went into cardiac arrest. - Summary Details: Patient had worsening kidney failure, A. fib with RVR, and abdominal cramping. Noted to have worsening of labs. Prior to ability to transition course of care, she was uncomfortable in bed so she moved to a bedside chair. Shortly thereafter she became less responsive and went into cardiac arrest. Was on telemetry at this time and went into asystole with loss of respiratory drive and palpable pulse. - Additional Data Confirmation of as documented by pronouncing clinician: no pulse, no respirations, no heart sounds, pupils fixed and dilated Family: contacted Attending/PCP notified?: Yes Attending physician: Aleksey Collins MD Was code activated?: No Autopsy requested?: No warehouse examiner notified?: Yes Organ bank notified?: Yes Advance directives: No Hospice patient?: Yes
== END 2020-04-15 08:40 | disposition expired | DRG 178 ==
LOC: ER 18:13 → 2ND 04-15 05:57
PROVIDERS: Internal Medicine Adolescent Medicine; Admitting Provider Family Medicine; Emergency Provider Emergency Medicine; PCP Internal Medicine Adolescent Medicine; Visit Provider Internal Medicine Adolescent Medicine
DX: J15.6 Pneumonia due to other Gram-negative bacteria (principal); C80.0 Disseminated malignant neoplasm, unspecified; J44.9 Chronic obstructive pulmonary disease, unspecified; I50.9 Heart failure, unspecified; I11.0 Hypertensive heart disease with heart failure; I48.91 Unspecified atrial fibrillation; I46.9 Cardiac arrest, cause unspecified; Z87.891 Personal history of nicotine dependence; Z99.81 Dependence on supplemental oxygen; E87.5 Hyperkalemia; E03.9 Hypothyroidism, unspecified; Z79.899 Other long term (current) drug therapy; Z90.12 Acquired absence of left breast and nipple; Z85.038 Personal history of other malignant neoplasm of large intestine; Z85.3 Personal history of malignant neoplasm of breast; Z85.118 Personal history of other malignant neoplasm of bronchus and lung
CPT/HCPCS: 36415; 71046; 80053; 81001; 82803; 83605; 83690; 83735; 83880; 85007; 85025; 87040; 87086; 93005; 94640; 94761; 99284; G0378; J2405